=== PATIENT | female | born 1960 | race Caucasian/White ===

== ENCOUNTER → 2016-11-01 | Outpatient (CLI) | payer BC, MEDICARE ==
--- NOTE | 2016-11-01 14:20 | MR ---
EXAMINATION TYPE: MR lumbar spine wo con DATE OF EXAM: 11/01/2016 COMPARISON: NONE HISTORY: lumbago per order. Pain and numbness and tingling in back extending into left thigh and calf per patient for years. TECHNIQUE: Multiplanar, multisequence imaging of the lumbar spine is performed without IV contrast. FINDINGS: Sagittal images of the lumbar spine show vertebral body heights and alignment to appear sat isfactory. Multilevel disc desiccation is seen but disc space heights are fairly well-maintained. No large posterior disc herniations are seen on sagittal images The conus medullaris is normal in posit ion and signal ending at T12-L1 disc space level. The bone marrow signal intensity is within normal limits. No significant spurring is seen. Axial images beginning at labeled T12-L1 level which appears within normal limits. Axial images at L1 -L2 and L2-L3 levels are felt within normal limits. Axial images at L3-L4 level show mild broad disc bulge minimally effacing anterior thecal sac and axi al image 13. Bilateral neural foramina are patent. Axial images at L4-L5 level show mild/moderate facet degenerative changes limits point hypertrophy ef facing posterior lateral thecal sac and axial image 7. There is broad-based posterior disc protrusion mildly effacing anterior thecal sac. Bilateral neural foramina are patent. Axial images at L5-S1 level show mild facet degenerative changes bilaterally. Spinal canal is preserv ed and bilateral neural foramina are patent. Paraspinal muscle bulk is preserved. IMPRESSION: Degenerative changes in the mid to lower lumbar spine as detailed above, no significant f inding is seen to account for patient's radiculopathy type symptoms however.
== END | disposition home or self-care (01) ==
LOC: RADMRIMAIN 10:39
PROVIDERS: ATTEND Nurse Practitioner Acute Care
DX: M47.816 Spondylosis without myelopathy or radiculopathy, lumbar region (principal)
CPT/HCPCS: 72148

== ENCOUNTER → 2020-03-24 | Outpatient (CLI) | payer MEDICARE ==
--- NOTE | 2020-03-24 16:16 | CT ---
EXAMINATION TYPE: CT brain wo con DATE OF EXAM: 03/24/2020 COMPARISON: MRI brain 12/06/2010 INDICATION: Headache and altered mental status, hx of aneurysm clips. DLP: 943.8 mGycm, Automated exposure control for dose reduction was used. CONTRAST: None CT of the brain is performed utilizing 3 mm thick sections through the posterior fossa and 3 mm thick sections through the remaining calvarium. Study is performed within 24 hours of arrival to the hosp ital. There is metallic coils are low at the left posterior inferior cerebellar artery level compatible wit h an aneurysm coiling. Metallic clip is also within the right MCA bifurcation region. Craniotomy defe ct is in the right temporal parietal region. No abnormal hyperdensity is present to suggest an acute intracranial hemorrhage. No mass lesion is evident. No acute infarcts are evident. Ventricles and sulci are appropriate for the patient age. Paranasal sinuses and mastoid air cells within the [id number]-teyt are clear. IMPRESSIONS: 1. No acute intracranial process. 2. Postsurgical changes
--- NOTE | 2020-03-24 16:51 | CT ---
EXAMINATION TYPE: CT angio head DATE OF EXAM: 03/24/2020 HISTORY: Headache and altered mental status, hx of aneurysm clips. COMPARISON: None CT DLP: 849.2 mGycm. Automated Exposure Control for Dose Reduction was Utilized. TECHNIQUE: CTA scan of the neck is performed with IV Contrast, patient injected with 100ml mL of Iso tirso 370, axial images are obtained, coronal and sagittal reformatted images are reviewed. Three-D rec onstructed images are created on an independent workstation and reviewed. Source images are reviewed . FINDINGS: Patient's coiling at the inferior left PICA and the aneurysm clip at the right middle cerebral artery bifurcation region are evident. No suspicious changes to suggest aneurysm is identified. Cervical of [place]erv[place]: Vertebral basilar system appears normal. Posterior cerebral vasculature is unrema rkable. Internal carotid arteries bifurcate normally into A1 and M1 segments. A2 segments are normal. The anterior communicating artery is patent. Left Posterior communicating artery is patent. Right po sterior communicating artery is patent. IMPRESSION: 1. No interval development aneurysm identified. 2. Normal [place] of [place]. 3. 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
== END | disposition home or self-care (01) ==
LOC: RADCTMAIN 15:31
PROVIDERS: ATTEND Psychiatry & Neurology Neurology
DX: R41.82 Altered mental status, unspecified (principal); Z98.890 Other specified postprocedural states; Z86.79 Personal history of other diseases of the circulatory system
CPT/HCPCS: 70496; 70450; Q9967

== ENCOUNTER 2020-09-19 20:46 | Emergency (ER) | payer MEDICARE, OTHER ==
[2020-09-19 20:51] VITALS: BP 141/86; PULSE 96; RESP 18; TEMP 98.2
[2020-09-19] MEDS ORDERED: ONDANSETRON 4 MG/2 ML VIAL IVP STA (21:27)
[2020-09-19] MEDS ORDERED: SODIUM CHLORIDE 0.9% 2,000 ML IV STA (21:27)
[2020-09-19 21:44] LABS: Basophils # (A) 0.1 k/uL (0-0.2); Basophils % (A) 1 %; Eosinophils # (A) 0.2 k/uL (0-0.7); Eosinophils % (A) 2 %; HCT 45.7 % (34.0-46.0); HGB 13.9 gm/dL (11.4-16.0); Hypochromasia Marked; Lymphocytes # (A) 3.4 k/uL (1.0-4.8); Lymphocytes % (A) 31 %; MCH 23.9 pg (25.0-35.0); MCHC 30.3 g/dL (31.0-37.0); MCV 78.9 fL (80.0-100.0); Mean Platelet Volume 7.8; Monocytes # (A) 0.7 k/uL (0-1.0); Monocytes % (A) 6 %; Neutrophils # (A) 6.3 k/uL (1.3-7.7); Neutrophils % (A) 58 %; Platelet Count 331 k/uL (150-450); RBC 5.79 m/uL (3.80-5.40); RDW 15.6 % (11.5-15.5); WBC 10.9 k/uL (3.8-10.6)
[2020-09-19 21:51] LABS: Appearance,Urine Clear (Clear); Bilirubin,Urine Negative (Negative); Blood,Urine Negative (Negative); Color,Urine Colorless; Glucose,Urine (UA) Negative (Negative); Ketones,Urine Negative (Negative); Leukocyte Esterase,Urine Negative (Negative); Nitrite,Urine Negative (Negative); Protein,Urine Negative (Negative); Specific Gravity,Urine 1.003 (1.001-1.035); Urobilinogen,Urine <2.0 mg/dL (<2.0)
[2020-09-19 22:09] LABS: ALT 15 U/L (4-34); AST 23 U/L (14-36); African American GFR (CKD) >90 (>60 ml/min/1.73 sqM); Albumin 4.2 g/dL (3.5-5.0); Alkaline Phosphatase 118 U/L (38-126); Anion Gap 10 mmol/L; Blood Urea Nitrogen 17 mg/dL (7-17); Calcium 9.8 mg/dL (8.4-10.2); Carbon Dioxide 30 mmol/L (22-30); Chloride 97 mmol/L (98-107); Glucose 98 mg/dL (74-99); Lipase 50 U/L (23-300); Magnesium 1.9 mg/dL (1.6-2.3); Non-African American GFR(CKD) >90 (>60 ml/min/1.73 sqM); Sodium 137 mmol/L (137-145); Total Bilirubin 0.3 mg/dL (0.2-1.3); Total Protein 6.9 g/dL (6.3-8.2)
[2020-09-19] MEDS ORDERED: ONDANSETRON 4 MG ODT STARTER PACK 2 TAB BTL PO STA (22:28)
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
== END 2020-09-19 22:48 | disposition home or self-care (01) ==
LOC: EC 20:46
DX: R11.2 Nausea with vomiting, unspecified (principal); T36.8X5A Adverse effect of other systemic antibiotics, initial encounter; I10 Essential (primary) hypertension; E78.5 Hyperlipidemia, unspecified; J44.9 Chronic obstructive pulmonary disease, unspecified; Z87.891 Personal history of nicotine dependence
CPT/HCPCS: 36415; 93005; 80053; 83690; 83735; 85025; 81003; 96374; 96361; 99284; J2405; S0119

== ENCOUNTER → 2021-02-17 | Outpatient (CLI) | payer OTHER, MEDICARE ==
--- NOTE | 2021-02-17 13:04 | CT ---
EXAMINATION TYPE: CT ankle RT wo con DATE OF EXAM: 02/17/2021 COMPARISON: None HISTORY: Closed trimalleolar fracture of right ankle. CT DLP: 401.[address] of the right ankle with reconstruction imaging. TECHNIQUE: Unenhanced CT of the right anklewas performed with bone and soft tissue window settings munguia bmitted in the axial coronal and sagittal planes. At a separate workstation [id number] TR imaging was obtai janet. FINDINGS: There is a plate and screw fixation involving the lateral malleolus with healed fracture no afsaneh. There is additional plate fixation with screws involving the posterior malleolus. There is interval h ealing noted. I do not see evidence for an acute fracture at this time. There is also plate and screw fixation involving the medial malleolus. Ankle mortise is intact. Degenerative narrowing noted. Ther e is disuse osteopenia noted throughout the visualized ankle. Mild soft tissue swelling is identified . IMPRESSION: 1. Plate and screw fixation of trimalleolar fractures noted above which demonstrate appropriate heali ng. No acute fractures seen. Disuse osteopenia.
== END | disposition home or self-care (01) ==
LOC: RADCTMAIN 12:09
PROVIDERS: ATTEND Orthopaedic Surgery Orthopaedic Trauma
DX: S82.851D Displaced trimalleolar fracture of right lower leg, subsequent encounter for closed fracture with routine healing (principal)

== ENCOUNTER → 2021-12-31 | Outpatient (CLI) | payer MEDICARE, OTHER ==
--- NOTE | 2021-12-31 13:07 | XR ---
EXAMINATION TYPE: XR chest 2V DATE OF EXAM: 12/31/2021 COMPARISON: None INDICATION: Emphysema, medical clearance TECHNIQUE: Frontal and lateral views of the chest are obtained. FINDINGS: The heart size is normal. The pulmonary vasculature is normal. The lungs are clear. Postsurgical changes within the lower thoracic spine are evident IMPRESSION: 1. No acute pulmonary process.
== END | disposition home or self-care (01) ==
LOC: RADXRMAIN 10:32
PROVIDERS: ATTEND Internal Medicine Pulmonary Disease
DX: J43.2 Centrilobular emphysema (principal)
CPT/HCPCS: 71046

== ENCOUNTER → 2022-01-25 | Outpatient (CLI) | payer OTHER ==
--- NOTE | 2022-01-25 16:10 | CT ---
EXAMINATION TYPE: CT thoracic spine wo con DATE OF EXAM: 01/25/2022 COMPARISON: None HISTORY: 61-year-old female M48.30, mid back pain around area of surgical site. Spinal surgery 10 mon ths ago. TECHNIQUE: Contiguous axial scanning of the thoracic spine without IV contrast. Coronal and sagittal reconstructions performed. CT DLP: 1061.5 mGycm Automated exposure control for dose reduction was used. FINDINGS: There is an intrathecal lead with tip at the T8-T9 level within the ventral thecal sac. The lead ente rs the left L3/L4 interlaminar space. There are postsurgical changes of T11-L1 posterior lumbar fusion with vertebral plasty at the T12 lev el. There is mild retropulsion into the ventral spinal canal and focal kyphotic deformity here but no evident canal compromise. Remaining vertebral body heights are preserved. Hypertrophic facet arthropathy lower lumbar spine with grade 1 anterolisthesis L5-S1. No significant paraspinal soft tissue abnormality identified especially at the surgical level. Moderate to advanced underlying emphysema. Moderate metastatic calcifications infrarenal abdominal ao rta. IMPRESSION: 1. STATUS POST T11-L1 POSTERIOR LUMBAR FUSION BRIDGING A T12 COMPRESSION FRACTURE STATUS POST VERTEBR OPLASTY CHANGE. MILD BONY RETROPULSION INTO THE VENTRAL SPINAL CANAL WITH FOCAL KYPHOSIS HERE BUT NO SOFYA CANAL COMPROMISE. THE ORTHOPEDIC HARDWARE APPEARS UNCOMPLICATED. NO PARASPINAL ABNORMALITY IDEN TIFIED ALLOWING FOR LIMITATIONS DUE TO METAL ARTIFACT. 2. HYPERTROPHIC FACET ARTHROPATHY LOWER LUMBAR SPINE WITH DEGENERATIVE GRADE 1 ANTEROLISTHESIS AT L5- S1.
== END | disposition home or self-care (01) ==
LOC: RADCTMAIN 12:56
PROVIDERS: ATTEND Neurological Surgery
DX: S22.081A Stable burst fracture of T11-T12 vertebra, initial encounter for closed fracture (principal); M47.816 Spondylosis without myelopathy or radiculopathy, lumbar region; M43.17 Spondylolisthesis, lumbosacral region; M40.204 Unspecified kyphosis, thoracic region; M48.30 Traumatic spondylopathy, site unspecified; Z98.1 Arthrodesis status
CPT/HCPCS: 72128

== ENCOUNTER 2022-10-08 12:03 | Inpatient (IN) | payer MEDICARE, OTHER ==
[2022-10-08] MEDS ORDERED: ACETAMINOPHEN IV (For NPO) 1,000 MG in EMPTY BAG 1 BAG IVPB STA (12:49)
--- NOTE | 2022-10-08 12:55 | ED ---
General Adult HPI - General Chief complaint: Chest Pain Stated complaint: Rt lung pain Time Seen by Provider: 10/08/22 12:16 Source: patient, family, RN notes reviewed Mode of arrival: wheelchair Limitations: no limitations - History of Present Illness Initial comments: Patient is a pleasant [age]-year-old female presenting to the emergency department with concerns of right sided posterior chest discomfort. Onset of symptoms was around 3 days ago. Patient has had limited activity since that time because it hurts to move. Patient does have mild cough and does have some mild sputum however has not looked at the color. No fevers. Patient does have history of similar symptoms twice previously associated with pneumonia. Patient states she does have a history of high heart rate and did not take her beta beth today. Patient does have history of COPD and is a former smoker. - Related Data Previous Rx's Medication Instructions Recorded Ondansetron Odt [Zofran Odt] 4 mg PO Q8HR PRN #15 tab 09/19/20 Allergies Allergy/AdvReac Type Severity Reaction Status Date / Time No Known Allergies Allergy Verified 09/19/20 20:51 Review of Systems ROS Statement: Those systems with pertinent positive or pertinent negative responses have been documented in the HPI. ROS Other: All systems not noted in ROS Statement are negative. Constitutional: Denies: fever Eyes: Denies: eye pain ENT: Denies: ear pain Respiratory: Reports: as per HPI, cough. Denies: dyspnea Cardiovascular: Reports: as per HPI Endocrine: Denies: fatigue Gastrointestinal: Denies: abdominal pain Genitourinary: Denies: dysuria Musculoskeletal: Reports: as per HPI Past Medical History Past Medical History: Asthma, COPD, Hyperlipidemia, Hypertension History of Any Multi-Drug Resistant Organisms: None Reported Additional Past Surgical History / Comment(s): Surgey on right foot 2020 Past Psychological History: No Psychological Hx Reported Smoking Status: Former smoker Past Alcohol Use History: None Reported Past Drug Use History: None Reported General Exam Limitations: no limitations General appearance: alert, in no apparent distress Head exam: Present: normocephalic Eye exam: Present: normal appearance Neck exam: Present: normal inspection Respiratory exam: Present: normal lung sounds bilaterally. Absent: respiratory distress, wheezes Cardiovascular Exam: Present: tachycardia GI/Abdominal exam: Present: soft. Absent: tenderness Extremities exam: Present: normal inspection. Absent: pedal edema, calf tenderness Back exam: Present: other (Mild tenderness right posterior lateral mid lung above the CVA). Absent: vertebral tenderness Neurological exam: Present: alert Psychiatric exam: Present: normal affect, normal mood Skin exam: Present: normal color Course Vital Signs 10/08/22 10/08/22 10/08/22 12:09 13:12 14:00 Temperature 99.3 F Pulse Rate 128 H 112 H 107 H Respiratory 18 20 20 Rate Blood Pressure 95/60 105/71 104/71 O2 Sat by Pulse 89 L 94 L 94 L Oximetry EKG Findings - EKG Results: EKG: interpreted by ERMD, sinus rhythm, normal axis, normal QRS, normal ST/T EKG shows: tachycardia Medical Decision Making - Medical Decision Making Was pt. sent in by a medical professional or institution (, PA, SHREDDER OPERATOR, urgent care, hospital, or fpc...) When possible be specific @ -[No] Did you speak to anyone other than the patient for history (EMS, parent, family, police, friend...)? What history was obtained from this source @ -Family is present and helps right history including onset Did you review nursing and triage notes (agree or disagree)? Why? @ -[I reviewed and agree with nursing and triage notes] Were old charts reviewed (outside hosp., previous admission, EMS record, old EKG, old radiological studies, urgent care reports/EKG's, fpc records)? Report findings @ -[No old charts were reviewed] Differential Diagnosis (chest pain, altered mental status, abdominal pain women, abdominal pain men, vaginal bleeding, weakness, fever, dyspnea, syncope, headache, dizziness, GI bleed, back pain, seizure, CVA, palpatations, mental health, musculoskeletal)? @ -Differential Dyspnea: Coronary syndrome, arrhythmia, tamponade, asthma, COPD, pulmonary embolism, pneumonia, pneumothorax, pulmonary effusion, anaphylaxis, diabetic ketoacidosis, flailed chest, pulmonary contusion, diaphragmatic rupture, anemia, neuromuscu lar, this is not meant to be an all-inclusive list. EKG interpreted by me (3pts min.). @ -[As above] X-rays interpreted by me (1pt min.). @ -Chest x-ray shows multifocal pneumonia, mostly right lower CT interpreted by me (1pt min.). @ -[None done] U/S interpreted by me (1pt. min.). @ -[None done] What testing was considered but not performed or refused? (CT, X-rays, U/S, labs)? Why? @ -[None] What meds were considered but not given or refused? Why? @ -[None] Did you discuss the management of the patient with other professionals (professionals i.e. Dr., PA, SHREDDER OPERATOR, lab, RT, psych nurse, social services specialist, manufacturing plant manager, teacher, geological technical officer, telephonic nurse case manager)? Give summary @ -Case was discussed with Dr. Garcia with [facility] who will admit covering Dr. Larios Was smoking cessation discussed for >3mins.? @ -[No] Was critical care preformed (if so, how long)? @ -32 minutes. Were there social determinants of health that impacted care today? How? (Homelessness, low income, unemployed, alcoholism, drug addiction, transportation, low edu. Level, literacy, decrease access to med. care, care home, rehab)? @ -[No] Was there de-escalation of care discussed even if they declined (Discuss DNR or withdrawal of care, Hospice)? DNR status @ -[No] What co-morbidities impacted this encounter? (DM, HTN, Smoking, COPD, CAD, Cancer, CVA, ARF, Chemo, Hep., AIDS, mental health diagnosis, sleep apnea, morbid obesity)? @ -[None] Was patient admitted / discharged? Hospital course, mention meds given and route, prescriptions, significant lab abnormalities, going to OR and other pertinent info. @ -Patient reevaluated. Patient updated on results and plan. Patient be admitted with pulmonary consult. Orders written. There is concern for sepsis diagnosed at 1440. Blood culture and lactic acid and IV antibiotics will be ordered. Patient also has elevated d-dimer and computed tomography scan the chest will be ordered. Undiagnosed new problem with uncertain prognosis? @ -[No] Drug Therapy requiring intensive monitoring for toxicity (Heparin, Nitro, Insulin, Cardizem)? @ -[No] Were any procedures done? @ -[No] Diagnosis/symptom? @ -Pneumonia, sepsis Acute, or Chronic, or Acute on Chronic? @ -Acute, acute Uncomplicated (without systemic symptoms) or Complicated (systemic symptoms)? @ -Pneumonias, Yasmeen with sepsis Side effects of treatment? @ -[No] Exacerbation, Progression, or Severe Exacerbation? @ -[No] Poses a threat to life or bodily function? How? (Chest pain, USA, NM, pneumonia, PE, COPD, DKA, ARF, appy, cholecystitis, CVA, Diverticulitis, Homicidal, Suicidal, threat to staff... and all critical care pts) @ -And sepsis does pose a threat to life with multiorgan dysfunction potential - Lab Data Result diagrams: 10/08/22 12:55 10/08/22 12:55 Lab Results 10/08/22 10/08/22 10/08/22 Range/Units 12:55 12:55 12:55 WBC 15.2 H (3.8-10.6) k/uL RBC 4.64 (3.80-5.40) m/uL Hgb 13.2 (11.4-16.0) gm/dL Hct 41.6 (34.0-46.0) % MCV 89.6 (80.0-100.0) fL MCH 28.4 (25.0-35.0) pg MCHC 31.7 (31.0-37.0) g/dL RDW 14.3 (11.5-15.5) % Plt Count 164 (150-450) k/uL MPV 8.5 Neutrophils % 89 % Lymphocytes % 7 % Monocytes % 2 % Eosinophils % 1 % Basophils % 0 % Neutrophils # 13.6 H (1.3-7.7) k/uL Lymphocytes # 1.0 (1.0-4.8) k/uL Monocytes # 0.3 (0-1.0) k/uL Eosinophils # 0.2 (0-0.7) k/uL Basophils # 0.0 (0-0.2) k/uL Hypochromasia Slight PT 11.0 (9.0-12.0) sec INR 1.1 (<1.2) APTT 31.1 H (22.0-30.0) sec D-Dimer 5.24 H (<0.60) mg/L FEU Sodium 133 L (137-145) mmol/L Potassium 3.4 L (3.5-5.1) mmol/L Chloride 98 (98-107) mmol/L Carbon Dioxide 27 (22-30) mmol/L Anion Gap 8 mmol/L BUN 17 (7-17) mg/dL Creatinine 0.68 (0.52-1.04) mg/dL Est GFR (CKD-EPI)AfAm >90 (>60 ml/min/1.73 sqM) Est GFR (CKD-EPI)NonAf >90 (>60 ml/min/1.73 sqM) Glucose 102 H (74-99) mg/dL Plasma Lactic Acid Johnie (0.7-2.0) mmol/L Calcium 8.4 (8.4-10.2) mg/dL Magnesium 1.9 (1.6-2.3) mg/dL Total Bilirubin 1.8 H (0.2-1.3) mg/dL AST 17 (14-36) U/L ALT 17 (4-34) U/L Alkaline Phosphatase 165 H (38-126) U/L Total Protein 5.7 L (6.3-8.2) g/dL Albumin 2.9 L (3.5-5.0) g/dL TSH 1.230 (0.465-4.680) mIU/L Free T4 1.29 (0.78-2.19) ng/dL Free T3 pg/mL 2.8 (2.8-5.3) pg/ml Coronavirus (PCR) (Not Detectd) 10/08/22 10/08/22 Range/Units 12:55 12:55 WBC (3.8-10.6) k/uL RBC (3.80-5.40) m/uL Hgb (11.4-16.0) gm/dL Hct (34.0-46.0) % MCV (80.0-100.0) fL MCH (25.0-35.0) pg MCHC (31.0-37.0) g/dL RDW (11.5-15.5) % Plt Count (150-450) k/uL MPV Neutrophils % % Lymphocytes % % Monocytes % % Eosinophils % % Basophils % % Neutrophils # (1.3-7.7) k/uL Lymphocytes # (1.0-4.8) k/uL Monocytes # (0-1.0) k/uL Eosinophils # (0-0.7) k/uL Basophils # (0-0.2) k/uL Hypochromasia PT (9.0-12.0) sec INR (<1.2) APTT (22.0-30.0) sec D-Dimer (<0.60) mg/L FEU Sodium (137-145) mmol/L Potassium (3.5-5.1) mmol/L Chloride (98-107) mmol/L Carbon Dioxide (22-30) mmol/L Anion Gap mmol/L BUN (7-17) mg/dL Creatinine (0.52-1.04) mg/dL Est GFR (CKD-EPI)AfAm (>60 ml/min/1.73 sqM) Est GFR (CKD-EPI)NonAf (>60 ml/min/1.73 sqM) Glucose (74-99) mg/dL Plasma Lactic Acid Johnie 1.0 (0.7-2.0) mmol/L Calcium (8.4-10.2) mg/dL Magnesium (1.6-2.3) mg/dL Total Bilirubin (0.2-1.3) mg/dL AST (14-36) U/L ALT (4-34) U/L Alkaline Phosphatase (38-126) U/L Total Protein (6.3-8.2) g/dL Albumin (3.5-5.0) g/dL TSH (0.465-4.680) mIU/L Free T4 (0.78-2.19) ng/dL Free T3 pg/mL (2.8-5.3) pg/ml Coronavirus (PCR) Not Detected (Not Detectd) Critical Care Time Critical Care Time: Yes Total Critical Care Time: 31 Disposition Clinical Impression: Pneumonia, Sepsis Disposition: ADMITTED IP TO THIS HOSP Condition: Serious Is patient prescribed a controlled substance at d/c from ED?: No Referrals: Kevin Marie MD [Primary Care Provider] - 1-2 days Time of Disposition: 14:41
[2022-10-08] MEDS: SODIUM CHLORIDE 0.9% 1,000 ML IV SCH ×3 (13:03→22:32)
[2022-10-08 13:29] LABS: Basophils % (A) 0 %; Eosinophils # (A) 0.2 k/uL (0-0.7); Eosinophils % (A) 1 %; HCT 41.6 % (34.0-46.0); HGB 13.2 gm/dL (11.4-16.0); Hypochromasia Slight; Lymphocytes % (A) 7 %; MCH 28.4 pg (25.0-35.0); MCHC 31.7 g/dL (31.0-37.0); MCV 89.6 fL (80.0-100.0); Mean Platelet Volume 8.5; Monocytes # (A) 0.3 k/uL (0-1.0); Monocytes % (A) 2 %; Neutrophils # (A) 13.6 k/uL (1.3-7.7); Neutrophils % (A) 89 %; Platelet Count 164 k/uL (150-450); RBC 4.64 m/uL (3.80-5.40); RDW 14.3 % (11.5-15.5); WBC 15.2 k/uL (3.8-10.6)
--- NOTE | 2022-10-08 13:51 | XR ---
EXAMINATION TYPE: XR chest 2V DATE OF EXAM: 10/08/2022 1:29 PM COMPARISON: Chest radiographs from 12/31/2021 TECHNIQUE: XR chest 2V Frontal and lateral views of the chest. CLINICAL INDICATION:Female, 62 years old with history of Fever; FINDINGS: Lungs/Pleura: No pleural effusion or pneumothorax. Multifocal patchy airspace opacities within the ri ght mid and lower lung. Pulmonary vascularity: Unremarkable. Heart/mediastinum: Cardiomediastinal silhouette is unremarkable. Musculoskeletal: No acute osseous pathology. Status post T11 L1 posterior lumbar fusion bridging T12 compression fracture status post vertebroplasty changes. IMPRESSION: Multifocal patchy airspace opacity within the right mid and lower lung concerning for pneumonia.
[2022-10-08 13:53] LABS: ALT 17 U/L (4-34); AST 17 U/L (14-36); African American GFR (CKD) >90 (>60 ml/min/1.73 sqM); Albumin 2.9 g/dL (3.5-5.0); Alkaline Phosphatase 165 U/L (38-126); Anion Gap 8 mmol/L; Blood Urea Nitrogen 17 mg/dL (7-17); Calcium 8.4 mg/dL (8.4-10.2); Carbon Dioxide 27 mmol/L (22-30); Chloride 98 mmol/L (98-107); Glucose 102 mg/dL (74-99); Magnesium 1.9 mg/dL (1.6-2.3); Non-African American GFR(CKD) >90 (>60 ml/min/1.73 sqM); Potassium 3.4 mmol/L (3.5-5.1); Sodium 133 mmol/L (137-145); Total Bilirubin 1.8 mg/dL (0.2-1.3); Total Protein 5.7 g/dL (6.3-8.2)
[2022-10-08 13:58] LABS: INR 1.1 (<1.2); Partial Thromboplastin Time 31.1 sec (22.0-30.0)
[2022-10-08 14:08] LABS: T4, Free (Free Thyroxine) 1.29 ng/dL (0.78-2.19)
[2022-10-08] MEDS ORDERED: AZITHROMYCIN 500 MG in SODIUM CHLORIDE 0.9% 250 ML IVPB STA (14:41)
[2022-10-08] MEDS ORDERED: PNEUMONIA PROTOCOL UTILIZED 1 EACH MISC PO PRN (14:41)
[2022-10-08] MEDS ORDERED: IPRATROPIUM-ALBUTEROL 3 ML NEB INHALATION PRN (15:07)
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
--- NOTE | 2022-10-08 15:46 | CT ---
EXAMINATION TYPE: CT angio chest CT DLP: 343.8 mGycm, Automated exposure control for dose reduction was used. DATE OF EXAM: 10/08/2022 3:28 PM COMPARISON: None CLINICAL INDICATION:Female, 62 years old with history of Dyspnea; SOB. R/O PE. TECHNIQUE/CONTRAST: CTA scan of the thorax is performed with IV Contrast, patient injected with 100 ml mL of Isovue 370, MIP images are created and reviewed these are created on a separate workstation.. FINDINGS: Pulmonary Artery: There is no evidence for a filling defect within the pulmonary vasculature to sugge st acute pulmonary embolism. The pulmonary artery is of normal size. Lungs/Pleura: Right lower lobe consolidation changes. Moderate emphysema changes are seen throughout the lungs including paraseptal and centrilobular emphysema. No evidence of focal consolidation, pleur al effusion or pneumothorax. Airway: Large airways are patent. Heart: Heart is within normal limits for size. Vasculature: No evidence of aortic aneurysm. Mediastinum: Multiple right pulmonary hilum lymph nodes measuring up to 3.7 x 2.3 cm. Musculoskeletal: No acute osseous abnormalities, postsurgical changes to the spine with hardware visu alized and intact. Vertebral plasty changes are also present. Soft Tissues: Unremarkable. Lower neck: No significant findings. Upper Abdomen: Gallbladder surgically absent. IMPRESSION: 1. No evidence of pulmonary embolism. 2. Right lower lobe pneumonia. Short-term follow-up CT is recommended to ensure resolution of right pulmonary hilum lymph nodes. 3. Hepatic steatosis. 4. [id number] emphysema changes.
--- NOTE | 2022-10-08 17:19 | US ---
EXAMINATION TYPE: US venous doppler duplex LE LT DATE OF EXAM: 10/08/2022 5:12 PM COMPARISON: NONE CLINICAL INDICATION: Female, 62 years old with history of swelling of legs; left leg pain and edema SIDE PERFORMED: left TECHNIQUE: The lower extremity deep venous system is examined utilizing real time linear array sonog tosha with graded compression, doppler sonography and color-flow sonography. VESSELS IMAGED: Common Femoral Vein Deep Femoral Vein Greater Saphenous Vein * Femoral Vein Popliteal Vein Small Saphenous Vein * Proximal Calf Veins (* superficial vessels) Grayscale, color doppler, spectral doppler imaging performed of the deep veins of the left lower extr emity. There is normal flow, compressibility, vascular waveforms. Left Leg: no evidence of DVT IMPRESSION: No deep venous thrombosis of the left lower extremity.
[2022-10-08] MEDS ORDERED: ALBUTEROL HFA INHALER INHALATION PRN (18:19)
[2022-10-08] MEDS: METOPROLOL TARTRATE 25 MG TAB PO SCH ×2 (18:28→22:32)
[2022-10-08] MEDS: HYDROcodone/APAP 5-325MG 1 EACH TAB PO SCH (18:28)
[2022-10-08] MEDS ORDERED: NON FORMULARY DRUG (Fluticasone/Umeclidin/Vilanter [Trelegy Ellipta 200-62.5-25] 1 EACH Bl INHALATION SCH (20:00)
[2022-10-08] MEDS: ATORVASTATIN 20 MG TAB PO SCH (20:07)
[2022-10-08] MEDS: DULoxetine HCL 60 MG CAPSULE.DR PO SCH (20:07)
[2022-10-08] MEDS: PANTOPRAZOLE 40 MG TABLET PO SCH (20:07)
[2022-10-08] MEDS: SYMBICORT 80-4.5 MCG INHALER INHALATION SCH (20:29)
[2022-10-08] MEDS: IPRATROPIUM 0.5 MG/2.5 ML NEBU INHALATION SCH (20:38)
[2022-10-09] MEDS: SODIUM CHLORIDE 0.9% 1,000 ML IV SCH ×6 (00:55→22:04)
--- NOTE | 2022-10-09 06:49 | XR ---
EXAMINATION TYPE: XR chest 2V DATE OF EXAM: 10/09/2022 6:44 AM COMPARISON: Chest radiographs from 10/08/2022, CTA chest 10/08/2022 TECHNIQUE: XR chest 2V Frontal and lateral views of the chest. CLINICAL INDICATION:Female, 62 years old with history of pneumonia; FINDINGS: Lungs/Pleura: No pleural effusion or pneumothorax. Multifocal patchy airspace opacities within the ri ght mid and lower lung redemonstrated. Linear atelectasis within the right midlung. Pulmonary vascularity: Unremarkable. Heart/mediastinum: Cardiomediastinal silhouette is unremarkable. Musculoskeletal: No acute osseous pathology. Status post T11 L1 posterior lumbar fusion bridging T12 compression fracture status post vertebroplasty changes. IMPRESSION: Similar multifocal patchy airspace opacities within the right mid and lower lung consistent with pneu monia.
[2022-10-09] MEDS: IPRATROPIUM 0.5 MG/2.5 ML NEBU INHALATION SCH (07:27)
[2022-10-09] MEDS: SYMBICORT 80-4.5 MCG INHALER INHALATION SCH (07:27)
[2022-10-09] MEDS ORDERED: PANTOPRAZOLE 40 MG TABLET PO SCH (07:30)
[2022-10-09] MEDS: HYDROcodone/APAP 5-325MG 1 EACH TAB PO SCH ×2 (09:44→22:03)
[2022-10-09] MEDS: POTASSIUM CHLORIDE ER 10 MEQ TAB.ER.PRT PO SCH (09:44)
[2022-10-09] MEDS: ASPIRIN 81 MG PO SCH (09:44)
[2022-10-09] MEDS: METOPROLOL TARTRATE 25 MG TAB PO SCH ×2 (09:45→22:03)
[2022-10-09] MEDS: PANTOPRAZOLE 40 MG TABLET PO SCH ×2 (09:45→22:02)
--- NOTE | 2022-10-09 10:21 | P.CNPUL ---
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 She is on home oxygen at 1 L/m per nasal cannula mainly at night. She is on Trelegy and albuterol. She presented here to the emergency room yesterday with complaints of increasing shortness of breath, cough and congestion. Chest x-ray shows multifocal patchy airspace opacities within the right mid and lower lung consistent with pneumonia. CT angiogram ruled out pulmonary embolism. There is a right lower lobe pneumonia noted. Mild to moderate emphysematous changes. She is having complaints of left lower leg discomfort and DVT was ruled out. White count 15.2. Hemoglobin 13.2. Platelets 164. D-dimer 5.24. Sodium 133. Potassium 3.4. Bicarb 27. BUN 17. Creatinine 0.68. AST 17. ALT 17. Troponins negative 3. Huerta virus not detected. She's been initiated and DuoNeb inhalations, Pulmicort and Perforomist inhalations, Solu-Medrol. Antibiotics for ceftriaxone and azithromycin. Review of Systems REVIEW OF SYSTEMS: CONSTITUTIONAL: Denies any recent significant weight loss or weight gain. EYES: Denies change in vision. EARS, NOSE, MOUTH, THROAT: Denies headaches, denies sore throat. CARDIOVASCULAR: Denies chest pain, palpitations or syncopal episodes. RESPIRATORY: Positive for shortness of breath, cough, congestion no hemoptysis. GASTROINTESTINAL: Denies change in appetite, denies abdominal pain GENITOURINARY: Denies hematuria, denies infections. MUSKULOSKELETAL: Left lower extremity pain, denies swelling. INTEGUMENTARY: Denies rash, denies eczema. NEUROLOGICAL: Denies recent memory loss, no recent seizure activity. PSYCHIATRIC: Denies anxiety, denies depression. HEMATOLOGIC/LYMPHATIC: Denies anemia, denies enlarged lymph nodes. Past Medical History Past Medical History: Asthma, COPD, Hyperlipidemia, Hypertension History of Any Multi-Drug Resistant Organisms: None Reported Additional Past Surgical History / Comment(s): Surgey on right foot 2020 Past Psychological History: No Psychological Hx Reported Smoking Status: Former smoker Past Alcohol Use History: None Reported Past Drug Use History: None Reported Medications and Allergies Home Medications Medication Instructions Recorded Confirmed Type Albuterol Sulfate [Ventolin HFA] 2 puff INHALATION RT-QID PRN 10/08/22 10/08/22 History Aspirin EC [Ecotrin Low Dose] 81 mg PO DAILY 10/08/22 10/08/22 History DULoxetine HCL [Cymbalta] 60 mg PO HS 10/08/22 10/08/22 History Ergocalciferol [Vitamin D2 (1250 1,250 mcg PO DALE 10/08/22 10/08/22 History Mcg = 87284 Iu)] Fluticasone/Umeclidin/Vilanter 1 puff INHALATION RT-HS 10/08/22 10/08/22 History [Trelegy Ellipta 200-62.5-25] HYDROcodone/APAP 5-325MG [[place] 1 tab PO BID 10/08/22 10/08/22 History 5-325] Metoprolol Tartrate [Lopressor] 25 mg PO BID 10/08/22 10/08/22 History Omeprazole 20 mg PO BID 10/08/22 10/08/22 History Potassium Chloride ER [K-Dur 10] 10 meq PO DAILY 10/08/22 10/08/22 History Simvastatin [Zocor] 40 mg PO HS 10/08/22 10/08/22 History Allergies Allergy/AdvReac Type Severity Reaction Status Date / Time No Known Allergies Allergy Verified 10/08/22 15:45 Physical Exam Vitals: Vital Signs Temp Pulse Pulse Resp BP BP Pulse Ox 10/09/22 07:41 110 H 10/09/22 07:28 108 H 10/09/22 01:29 99.2 F 115 H 22 120/73 92 L 10/08/22 20:37 112 H 10/08/22 20:31 111 H 10/08/22 20:05 120 H 10/08/22 19:04 100.1 F H 110 H 22 118/72 92 L 10/08/22 15:43 97 10/08/22 15:37 98.6 F 106 H 22 108/70 97 10/08/22 14:00 107 H 20 104/71 94 L 10/08/22 13:12 112 H 20 105/71 94 L 10/08/22 12:09 99.3 F 128 H 18 95/60 89 L Intake and Output 10/08/22 10/09/22 10/09/22 22:59 06:59 14:59 Intake Total 240 Balance 240 Intake: Oral 240 Other: # Voids 1 1 Weight 72.575 kg GENERAL EXAM: Alert, pleasant 62-year-old female, on 3 L nasal cannula, fairly comfortable in no apparent distress. HEAD: Normocephalic. EYES: Normal reaction of pupils, equal size. NOSE: Clear with pink turbinates. THROAT: No erythema or exudates. NECK: No masses, no JVD. CHEST: No chest wall deformity. LUNGS: Equal air entry with bilateral scattered rhonchi right greater than left. CVS: S1 and S2 normal with no audible murmur, regular rhythm. ABDOMEN: No hepatosplenomegaly, normal bowel sounds, no guarding or rigidity. SPINE: No scoliosis or deformity SKIN: No rashes CENTRAL NERVOUS SYSTEM: No focal deficits, tone is normal in all 4 extremities. EXTREMITIES: There is no peripheral edema. No clubbing, no cyanosis. Peripheral pulses are intact. Results - Laboratory Findings CBC and BMP: 10/08/22 12:55 10/08/22 12:55 PT/INR, D-dimer PT 11.0 sec (9.0-12.0) 10/08/22 12:55 INR 1.1 (<1.2) 10/08/22 12:55 D-Dimer 5.24 mg/L FEU (<0.60) H 10/08/22 12:55 Abnormal lab findings: Abnormal Labs 10/08/22 10/08/22 10/08/22 12:55 12:55 12:55 WBC 15.2 H Neutrophils # 13.6 H APTT 31.1 H D-Dimer 5.24 H Sodium 133 L Potassium 3.4 L Glucose 102 H Total Bilirubin 1.8 H Alkaline Phosphatase 165 H Total Protein 5.7 L Albumin 2.9 L - Diagnostic Findings Chest x-ray: image reviewed CT scan - chest: image reviewed Assessment and Plan Assessment: Acute on chronic hypoxemic respiratory failure secondary to community-acquired pneumonia Acute exacerbation of chronic obstructive pulmonary disease secondary to above History of oxygen dependent chronic obstructive pulmonary disease Former smoker Hypertension Hyperlipidemia Gastroesophageal reflux disease History of depression Plan: The patient was seen and evaluated CAT scan, chest x-rays, labs and medications reviewed Continue DuoNeb inhalations, Pulmicort and Perforomist inhalations Continue Solu-Medrol Continue antibiotics Titrate the FiO2 as tolerated We will continue to follow and make further recommendations based on her clinical status I have personally seen and examined the patient, performed the documentation and the assessment and plan as written. Number of minutes spent on the visit: 20.
[2022-10-09] MEDS: AZITHROMYCIN 500 MG TAB PO SCH (11:16)
[2022-10-09] MEDS: IPRATROPIUM-ALBUTEROL 3 ML NEB INHALATION SCH ×3 (11:45→19:33)
[2022-10-09] MEDS: methylPREDNISolone SOD SUCCI 125 MG/2 ML VIAL IV SCH ×2 (12:42→17:58)
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
[2022-10-09] MEDS ORDERED: ERGOCALCIFEROL 1,250 MCG (50,000 IU) CAPSULE PO SCH (18:19)
[2022-10-09] MEDS: FORMOTEROL FUMARATE 20 MCG/2 ML NEBU INHALATION SCH (19:33)
[2022-10-09] MEDS: BUDESONIDE 1 MG/2 ML NEBU INHALATION SCH (19:33)
[2022-10-09] MEDS: DULoxetine HCL 60 MG CAPSULE.DR PO SCH (22:03)
[2022-10-09] MEDS: ATORVASTATIN 20 MG TAB PO SCH (22:03)
--- NOTE | 2022-10-09 23:11 | P.CONS ---
History of Present Illness - Reason for Consult Consult date: 10/09/22 - History of Present Illness Patient is a 62-year-old female with a past medical history significant for hypertension hyperlipidemia asthma/COPD presenting to the hospital yesterday afternoon for evaluation of right posterior chest discomfort patient's symptom has been going on for 3 days before presentation to the hospital he denies a history of any fall or trauma to the area patient complaining of sharp pain to the right lower chest intensity is almost 7-8 out of 10 no radiation patient also have a mild cough and is bringing up some sputum however denies high-grade fever, with the same the patient was evaluated on presentation to the hospital patient did have a low-grade fever of 99.3 subsequent spike a fever of 100.1 F patient was tachycardic did have elevated white count 15.2 with a left shift creatinine was normal liver enzymes are normal COVID testing was negative patient did have a chest x-ray multifocal patchy airspace opacity within the right mid and lower lung concerning for pneumonia patient also have a CT angiogram of the chest that was negative for PE however did shows evidence of right lower lobe pneumonia patient was started on Rocephin and Zithromax infectious disease was consulted for further management of antibiotic therapy Past Medical History Past Medical History: Asthma, COPD, Hyperlipidemia, Hypertension History of Any Multi-Drug Resistant Organisms: None Reported Additional Past Surgical History / Comment(s): Surgey on right foot 2020 Past Psychological History: No Psychological Hx Reported Smoking Status: Former smoker Past Alcohol Use History: None Reported Past Drug Use History: None Reported Medications and Allergies Home Medications Medication Instructions Recorded Confirmed Type Albuterol Sulfate [Ventolin HFA] 2 puff INHALATION RT-QID PRN 10/08/22 10/08/22 History Aspirin EC [Ecotrin Low Dose] 81 mg PO DAILY 10/08/22 10/08/22 History DULoxetine HCL [Cymbalta] 60 mg PO HS 10/08/22 10/08/22 History Ergocalciferol [Vitamin D2 (1250 1,250 mcg PO DALE 10/08/22 10/08/22 History Mcg = 04076 Iu)] Fluticasone/Umeclidin/[place]an[place] 1 puff INHALATION RT-HS 10/08/22 10/08/22 History [Trelegy Ellipta 200-62.5-25] HYDROcodone/APAP 5-325MG [[place] 1 tab PO BID 10/08/22 10/08/22 History 5-325] Metoprolol Tartrate [Lopressor] 25 mg PO BID 10/08/22 10/08/22 History Omeprazole 20 mg PO BID 10/08/22 10/08/22 History Potassium Chloride ER [K-Dur 10] 10 meq PO DAILY 10/08/22 10/08/22 History Simvastatin [Zocor] 40 mg PO HS 10/08/22 10/08/22 History Allergies Allergy/AdvReac Type Severity Reaction Status Date / Time No Known Allergies Allergy Verified 10/08/22 15:45 Physical Exam Vitals: Vital Signs Temp Pulse Pulse Resp BP Pulse Ox 10/09/22 11:55 96 10/09/22 11:47 94 10/09/22 07:41 110 H 10/09/22 07:28 108 H 10/09/22 01:29 99.2 F 115 H 22 120/73 92 L 10/08/22 20:37 112 H 10/08/22 20:31 111 H 10/08/22 20:05 120 H 10/08/22 19:04 100.1 F H 110 H 22 118/72 92 L 10/08/22 15:43 97 10/08/22 15:37 98.6 F 106 H 22 108/70 97 Intake and Output 10/08/22 10/09/22 10/09/22 22:59 06:59 14:59 Intake Total 240 Balance 240 Intake: Oral 240 Other: # Voids 1 1 Weight 72.575 kg Results CBC & Chem 7: 10/08/22 12:55 10/08/22 12:55 Labs: Abnormal Lab Results - Last 24 Hours (Table) 10/08/22 Range/Units 12:55 APTT 31.1 H (22.0-30.0) sec D-Dimer 5.24 H (<0.60) mg/L FEU Assessment and Plan Plan: 1patient was in the hospital with sepsis in this patient with fever tachycardia elevated white count source right lower lobe pneumonia likely community- acquired pathogen in this patient who do have underlying history of COPD and compromised lung. 2we will try to obtain a sputum for Gram stain and culture check a CRP and procalcitonin level. 3continue with Rocephin and Zithromax while waiting for the culture to finalize. We will follow on clinical condition and cultures to further adjust medication if needed Thank you for this consultation we will follow the patient along with you Dictation was produced using [employer] dictation software. please excuse any grammatical, word or spelling errors. Time with Patient: Greater than 30
[2022-10-10] MEDS: methylPREDNISolone SOD SUCCI 125 MG/2 ML VIAL IV SCH ×4 (00:14→17:45)
[2022-10-10] MEDS: SODIUM CHLORIDE 0.9% 1,000 ML IV SCH ×5 (03:10→17:46)
[2022-10-10] MEDS: IPRATROPIUM-ALBUTEROL 3 ML NEB INHALATION SCH ×4 (07:25→20:48)
[2022-10-10] MEDS: BUDESONIDE 1 MG/2 ML NEBU INHALATION SCH ×2 (07:26→20:49)
[2022-10-10] MEDS: FORMOTEROL FUMARATE 20 MCG/2 ML NEBU INHALATION SCH ×2 (07:26→20:48)
[2022-10-10 08:40] LABS: HCT 36.3 % (37.2-46.3); MCH 27.3 pg (27.0-32.0); MCHC 30.3 d/dL (32.0-37.0); MCV 90.1 FL (80.0-97.0); Mean Platelet Volume 10.9 FL (9.5-12.2); NRBC Per 100 WBC 0 X 10*3/uL (0.00-0.01); Platelet Count 194 X 10*3/uL (140-440); RBC 4.03 X 10*6/uL (4.10-5.20); WBC 9.14 X 10*3/uL (4.50-10.00)
[2022-10-10 08:51] LABS: ALT 12 U/L (8-44); AST 11 U/L (13-35); Albumin 2.8 d/dL (3.8-4.9); Albumin/Globulin Ratio 1.27 Ratio (1.60-3.17); Alkaline Phosphatase 122 U/L (41-126); Blood Urea Nitrogen 10.6 mg/dL (9.0-27.0); Calcium 8.8 mg/dL (8.7-10.3); Carbon Dioxide 23.7 mmol/L (21.6-31.8); Chloride 107 mmol/L (96-109); Globulin 2.2 d/dL (1.6-3.3); Glucose 224 mg/dL (70-110); Potassium 3.3 mmol/L (3.5-5.5); Sodium 141 mmol/L (135-145); Total Bilirubin 0.2 mg/dL (0.3-1.2)
[2022-10-10] MEDS: ASPIRIN 81 MG PO SCH (09:31)
[2022-10-10] MEDS: HYDROcodone/APAP 5-325MG 1 EACH TAB PO SCH ×2 (09:32→21:36)
[2022-10-10] MEDS: AZITHROMYCIN 500 MG TAB PO SCH (09:32)
[2022-10-10] MEDS: POTASSIUM CHLORIDE ER 10 MEQ TAB.ER.PRT PO SCH (09:33)
[2022-10-10] MEDS: METOPROLOL TARTRATE 25 MG TAB PO SCH ×2 (09:33→21:35)
[2022-10-10] MEDS: PANTOPRAZOLE 40 MG TABLET PO SCH ×2 (09:33→21:36)
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
--- NOTE | 2022-10-10 17:14 | P.PN ---
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 She is on home oxygen at 1 L/m per nasal cannula mainly at night. She is on Trelegy and albuterol. She presented here to the emergency room yesterday with complaints of increasing shortness of breath, cough and congestion. Chest x-ray shows multifocal patchy airspace opacities within the right mid and lower lung consistent with pneumonia. CT angiogram ruled out pulmonary embolism. There is a right lower lobe pneumonia noted. Mild to moderate emphysematous changes. She is having complaints of left lower leg discomfort and DVT was ruled out. White count 15.2. Hemoglobin 13.2. Platelets 164. D-dimer 5.24. Sodium 133. Potassium 3.4. Bicarb 27. BUN 17. Creatinine 0.68. AST 17. ALT 17. Troponins negative 3. Huerta virus not detected. She's been initiated and DuoNeb inhalations, Pulmicort and Perforomist inhalations, Solu-Medrol. Antibiotics for ceftriaxone and azithromycin. On today's evaluation of 10/10/2022, the patient is being seen for a follow-up. The patient has COPD and she is auction dependent and the patient has been maintained on Trelegy Ellipta on outpatient basis. She presented to us with worsening shortness of breath and patchy pulmonary infiltrates involving the lower lobes consistent with pneumonia and currently is on a combination of Rocephin and Zithromax and she is also on bronchodilators and steroids. The white cell count of 9.1 which is about compared to yesterday with a hemoglobin of 11.1 and a BUN is at 10 with a creatinine of 0.5 and a sodium level is at 141. The blood cultures are still negative for now. No other new complaints otherwise. The patient on oxygen at 3 L with a pulse ox of 94%, slightly improved compared to yesterday. Objective - Vital Signs Vital signs: Vital Signs Temp 96.1 F L 10/10/22 07:33 Pulse 89 10/10/22 11:33 Resp 18 10/10/22 08:00 BP 119/75 10/10/22 07:33 Pulse Ox 92 L 10/10/22 09:28 FiO2 21 10/10/22 07:26 Intake & Output 10/09/22 10/10/22 10/10/22 18:59 06:59 18:59 Intake Total 1080 Balance 1080 Intake: Oral 1080 Other: Voiding Method Toilet Bedside Commode # Voids 2 1 - Exam GENERAL EXAM: Alert, pleasant 62-year-old female, on 3 L nasal cannula, fairly comfortable in no apparent distress. HEAD: Normocephalic. EYES: Normal reaction of pupils, equal size. NOSE: Clear with pink turbinates. THROAT: No erythema or exudates. NECK: No masses, no JVD. CHEST: No chest wall deformity. LUNGS: Equal air entry with bilateral scattered rhonchi right greater than left. CVS: S1 and S2 normal with no audible murmur, regular rhythm. ABDOMEN: No hepatosplenomegaly, normal bowel sounds, no guarding or rigidity. SPINE: No scoliosis or deformity SKIN: No rashes CENTRAL NERVOUS SYSTEM: No focal deficits, tone is normal in all 4 extremities. EXTREMITIES: There is no peripheral edema. No clubbing, no cyanosis. Peripheral pulses are intact. - Labs CBC & Chem 7: 10/10/22 04:37 10/10/22 04:37 Labs: Abnormal Lab Results - Last 24 Hours (Table) 10/10/22 10/10/22 Range/Units 04:37 04:37 RBC 4.03 L (4.10-5.20) X 10*6/uL Hgb 11.0 L (12.0-15.0) d/dL Hct 36.3 L (37.2-46.3) % MCHC 30.3 L (32.0-37.0) d/dL Potassium 3.3 L (3.5-5.5) mmol/L Creatinine 0.5 L (0.6-1.5) mg/dL BUN/Creatinine Ratio 21.20 H (12.00-20.00) Ratio Glucose 224 H (70-110) mg/dL Total Bilirubin 0.2 L (0.3-1.2) mg/dL AST 11 L (13-35) U/L Total Protein 5.0 L (6.2-8.2) d/dL Albumin 2.8 L (3.8-4.9) d/dL Albumin/Globulin Ratio 1.27 L (1.60-3.17) Ratio Microbiology - Last 24 Hours (Table) 10/08/22 12:50 Blood Culture - Preliminary Blood 10/08/22 12:35 Blood Culture - Preliminary Blood Assessment and Plan Plan: Acute on chronic hypoxemic respiratory failure secondary to community-acquired pneumonia. The same time, the patient has a right hilar lymphadenopathy largest measuring 3.7 cm in size and she would benefit from a bronchoscopy and endobronchial ultrasound at the later stage and once her pneumonia has cleared. Right lower lobe pneumonia/consolidation Acute exacerbation of chronic obstructive pulmonary disease secondary to above History of oxygen dependent chronic obstructive pulmonary disease Former smoker Hypertension Hyperlipidemia Gastroesophageal reflux disease History of depression Plan: Continue same treatment CAT scan, chest x-rays, labs and medications reviewed, and the CAT scan of the chest with a right lower lobe pulmonary infiltrate/pneumonia and the patient has multiple right hilar lymph nodes largest measuring about 3.7 cm in size, and this is to be worked up on outpatient basis at the later stage. She may benefit from endobronchial ultrasound and transbronchial needle aspirate of the hilar lymph nodes. Continue DuoNeb inhalations, Pulmicort and Perforomist inhalations Continue Solu-Medrol Continue antibiotics Titrate the FiO2 as tolerated We will continue to follow and make further recommendations based on her clinical status
--- NOTE | 2022-10-10 19:18 | CA ---
Transthoracic Echo Report Name: Viridiana Marrero Age: 62 Gender: F : 1960 Exam Date: 10/10/2022 11:23 Exam Location: [facility] Ht (in): 62 Wt (lb): 160 Ordering Physician: Peter Garcia MD Attending/Referring Phys: Calcine Furnace Loader More Mustafa RDCS Procedure CPT: Indications: Slurred speech, CVA Cardiac Hx: Technical Quality: Fair Contrast 1: Total Dose (mL): Contrast 2: Total Dose (mL): MEASUREMENTS (Male / Female) Normal Values 2D ECHO LV Diastolic Diameter PLAX 4.7 cm 4.2 - 5.9 / 3.9 - 5.3 cm LV Systolic Diameter PLAX 3.2 cm IVS Diastolic Thickness 0.8 cm 0.6 - 1.0 / 0.6 - 0.9 cm LVPW Diastolic Thickness 0.9 cm 0.6 - 1.0 / 0.6 - 0.9 cm LV Relative Wall Thickness 0.4 RV Internal Dim ED PLAX 2.7 cm LA Systolic Diameter LX 3.4 cm 3.0 - 4.0 / 2.7 - 3.8 cm LV Diastolic Volume MOD 4C 77.4 cm??? LV Systolic Volume MOD 4C 41.0 cm??? LV Ejection Fraction MOD 4C 47.0 % LV Cardiac Index MOD 4C 1368.5 cm???/min???m??? LV Diastolic Length 4C 7.6 cm LV Systolic Length 4C 6.2 cm LV Diastolic Volume MOD 2C 85.1 cm??? LV Systolic Volume MOD 2C 49.9 cm??? LV Ejection Fraction MOD 2C 41.4 % LV Cardiac Index MOD 2C 1327.7 cm???/min???m??? LV Diastolic Length 2C 8.0 cm LV Systolic Length 2C 6.3 cm LA Volume 46.1 cm??? 18 - 58 / 22 - 52 cm??? M-MODE Aortic Root Diameter MM 3.2 cm MV E Point Septal Separation 1.5 cm AV Cusp Separation MM 2.0 cm DOPPLER AV Peak Velocity 149.1 cm/s AV Peak Gradient 8.9 mmHg MV Area PHT 3.3 cm??? Mitral E Point Velocity 104.7 cm/s Mitral A Point Velocity 110.6 cm/s Mitral E to A Ratio 0.9 MV Deceleration Time 232.9 ms MV E' Velocity 9.3 cm/s Mitral E to MV E' Ratio 11.3 TR Peak Velocity 225.7 cm/s TR Peak Gradient 20.4 mmHg Right Ventricular Systolic Press 24.9 mmHg FINDINGS Left Ventricle Left ventricular ejection fraction is estimated at 45-50 %. Left ventricular cavity size normal. Left ventricular wall thickness normal. Right Ventricle Normal right ventricular size. Right ventricular systolic pressure within normal limits. Right Atrium Normal right atrial size. Left Atrium Normal left atrial size. Mitral Valve Structurally normal mitral valve. No mitral stenosis, regurgitation or prolapse. Aortic Valve Trileaflet aortic valve. No aortic valve stenosis or regurgitation. Tricuspid Valve Structurally normal tricuspid valve. Trace to mild tricuspid regurgitation. Pulmonic Valve Pulmonic valve not well visualized. Pericardium No pericardial effusion. Aorta Normal size aortic root and proximal ascending aorta. CONCLUSIONS Normal LV size and systolic function Previewed by: Dr. Dylon De Leon MD (Electronically Signed) Final Date: 10 October 2022 19:17
[2022-10-10] MEDS: DULoxetine HCL 60 MG CAPSULE.DR PO SCH (21:36)
[2022-10-10] MEDS: ATORVASTATIN 20 MG TAB PO SCH (21:36)
[2022-10-11] MEDS: methylPREDNISolone SOD SUCCI 125 MG/2 ML VIAL IV SCH ×4 (00:30→18:20)
[2022-10-11] MEDS: SODIUM CHLORIDE 0.9% 1,000 ML IV SCH ×4 (02:33→23:58)
--- NOTE | 2022-10-11 08:00 | P.PN ---
Subjective Progress Note Date: 10/10/22 Principal diagnosis: Pneumonia Patient is a 62-year-old female with a past medical history significant for hypertension hyperlipidemia asthma/COPD presenting to the [facility] for evaluation of right posterior chest discomfort patient's symptom has been going on for 3 days before presentation to the hospital,chest x-ray multifocal patchy airspace opacity within the right mid and lower lung , CT angiogram of the chest that was negative for PE however did shows evidence of right lower lobe pneumonia On today's evaluation that is 10/10/2022 patient is afebrile this morning, patient is breathing slightly comfortably on 3 L nasal cannula oxygen patient chest pain has decreased in intensity patient denies any nausea no vomiting no abdominal pain no diarrhea. The patient white count normalized to 9.14, creatinine 0.5 blood culture currently pending sputum has not been collected Objective - Vital Signs Vital signs: Vital Signs Temp 97.9 F 10/10/22 20:51 Pulse 94 10/10/22 21:17 Resp 19 10/10/22 20:51 BP 111/69 10/10/22 20:51 Pulse Ox 95 10/10/22 20:51 FiO2 21 10/10/22 07:26 Intake & Output 10/10/22 10/10/22 10/11/22 06:59 18:59 06:59 Other: Voiding Method Toilet Bedside Commode # Voids 1 2 - Exam GENERAL DESCRIPTION: Middle-age female lying in bed in no distress RESPIRATORY SYSTEM: Unlabored breathing , coarse breath sounds at bases HEART: S1 S2 regular rate and rhythm ,no loud murmurs ABDOMEN: Soft , no tenderness EXTREMITIES: No edema feet - Labs CBC & Chem 7: 10/10/22 04:37 10/10/22 04:37 Labs: Abnormal Lab Results - Last 24 Hours (Table) 10/10/22 10/10/22 Range/Units 04:37 04:37 RBC 4.03 L (4.10-5.20) X 10*6/uL Hgb 11.0 L (12.0-15.0) d/dL Hct 36.3 L (37.2-46.3) % MCHC 30.3 L (32.0-37.0) d/dL Potassium 3.3 L (3.5-5.5) mmol/L Creatinine 0.5 L (0.6-1.5) mg/dL BUN/Creatinine Ratio 21.20 H (12.00-20.00) Ratio Glucose 224 H (70-110) mg/dL Total Bilirubin 0.2 L (0.3-1.2) mg/dL AST 11 L (13-35) U/L Total Protein 5.0 L (6.2-8.2) d/dL Albumin 2.8 L (3.8-4.9) d/dL Albumin/Globulin Ratio 1.27 L (1.60-3.17) Ratio Microbiology - Last 24 Hours (Table) 10/08/22 12:50 Blood Culture - Preliminary Blood 10/08/22 12:35 Blood Culture - Preliminary Blood Assessment and Plan (1) Pneumonia Current Visit: Yes Status: Acute Code(s): J18.9 - PNEUMONIA, UNSPECIFIED ORGANISM SNOMED Code(s): 085816475 Plan: 1patient was in the hospital with sepsis in this patient with fever tachycardia elevated white count source right lower lobe pneumonia likely community-acquired pathogen in this patient who do have underlying history of COPD and compromised lung. 2blood cultures currently pending sputum has not been collected procalcitonin level is pending. 3patient did have some clinical improvement we will get the patient on Rocephin and Zithromax while waiting for the culture to finalize and monitor clinical course closely Dictation was produced using [employer] dictation software. please excuse any grammatical, word or spelling errors. Time with Patient: Less than 30
[2022-10-11] MEDS: IPRATROPIUM-ALBUTEROL 3 ML NEB INHALATION SCH ×4 (08:27→21:06)
[2022-10-11] MEDS: FORMOTEROL FUMARATE 20 MCG/2 ML NEBU INHALATION SCH ×2 (08:27→21:06)
[2022-10-11] MEDS: BUDESONIDE 1 MG/2 ML NEBU INHALATION SCH ×2 (08:27→21:06)
[2022-10-11] MEDS: PANTOPRAZOLE 40 MG TABLET PO SCH ×2 (09:25→20:48)
[2022-10-11] MEDS: HYDROcodone/APAP 5-325MG 1 EACH TAB PO SCH ×2 (09:25→20:47)
[2022-10-11] MEDS: ASPIRIN 81 MG PO SCH (09:25)
[2022-10-11] MEDS: METOPROLOL TARTRATE 25 MG TAB PO SCH ×3 (09:25→20:48)
[2022-10-11] MEDS: ENOXAPARIN 40 MG/0.4 ML SYRINGE SQ SCH (09:27)
[2022-10-11] MEDS: POTASSIUM CHLORIDE ER 10 MEQ TAB.ER.PRT PO SCH (09:28)
[2022-10-11] MEDS: AZITHROMYCIN 500 MG TAB PO SCH (10:16)
[2022-10-11 10:56] LABS: HCT 37.3 % (37.2-46.3); HGB 11.2 d/dL (12.0-15.0); MCH 27.3 pg (27.0-32.0); MCV 90.8 FL (80.0-97.0); Mean Platelet Volume 10.7 FL (9.5-12.2); NRBC Per 100 WBC 0 X 10*3/uL (0.00-0.01); Platelet Count 252 X 10*3/uL (140-440); RBC 4.11 X 10*6/uL (4.10-5.20); RDW 14.4 % (11.5-14.5); WBC 7.33 X 10*3/uL (4.50-10.00)
[2022-10-11 11:07] LABS: Blood Urea Nitrogen 15.1 mg/dL (9.0-27.0); Carbon Dioxide 24.6 mmol/L (21.6-31.8); Chloride 107 mmol/L (96-109); Glucose 136 mg/dL (70-110); Potassium 3.8 mmol/L (3.5-5.5); Sodium 142 mmol/L (135-145)
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
--- NOTE | 2022-10-11 12:57 | P.PN ---
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 She is on home oxygen at 1 L/m per nasal cannula mainly at night. She is on Trelegy and albuterol. She presented here to the emergency room yesterday with complaints of increasing shortness of breath, cough and congestion. Chest x-ray shows multifocal patchy airspace opacities within the right mid and lower lung consistent with pneumonia. CT angiogram ruled out pulmonary embolism. There is a right lower lobe pneumonia noted. Mild to moderate emphysematous changes. She is having complaints of left lower leg discomfort and DVT was ruled out. White count 15.2. Hemoglobin 13.2. Platelets 164. D-dimer 5.24. Sodium 133. Potassium 3.4. Bicarb 27. BUN 17. Creatinine 0.68. AST 17. ALT 17. Troponins negative 3. Huerta virus not detected. She's been initiated and DuoNeb inhalations, Pulmicort and Perforomist inhalations, Solu-Medrol. Antibiotics for ceftriaxone and azithromycin. On today's evaluation of 10/10/2022, the patient is being seen for a follow-up. The patient has COPD and she is auction dependent and the patient has been maintained on Trelegy Ellipta on outpatient basis. She presented to us with worsening shortness of breath and patchy pulmonary infiltrates involving the lower lobes consistent with pneumonia and currently is on a combination of Rocephin and Zithromax and she is also on bronchodilators and steroids. The white cell count of 9.1 which is about compared to yesterday with a hemoglobin of 11.1 and a BUN is at 10 with a creatinine of 0.5 and a sodium level is at 141. The blood cultures are still negative for now. No other new complaints otherwise. The patient on oxygen at 3 L with a pulse ox of 94%, slightly improved compared to yesterday. 10/11/2022, the patient is being seen for a follow-up. As stated earlier, the patient is extensive and severe COPD addition to the right lower lobe consolidation/pneumonia. The patient remains on a combination of Rocephin and Zithromax. Her cough is less congested. She is still short of breath and she is oxygen dependent. Blood work from today shows a white second of 7.3 with a hemoglobin of 11.1, BUN is at 50 with a creatinine of 0.5 and a sodium level is at 142. A repeat chest x-ray will be ordered for tomorrow. Echo cardiac exam was done yesterday and the patient is a preserved LV function and the patient has no significant valvular abnormalities. No altered mentation. Objective - Vital Signs Vital signs: Vital Signs Temp 97.4 F L 10/11/22 07:48 Pulse 104 H 10/11/22 08:48 Resp 17 10/11/22 07:48 BP 122/74 10/11/22 07:48 Pulse Ox 97 10/11/22 08:27 FiO2 21 10/10/22 07:26 Intake & Output 10/10/22 10/11/22 10/11/22 18:59 06:59 18:59 Other: Voiding Method Toilet # Voids 2 - Exam GENERAL EXAM: Alert, pleasant 62-year-old female, on 3 L nasal cannula, fairly comfortable in no apparent distress. HEAD: Normocephalic. EYES: Normal reaction of pupils, equal size. NOSE: Clear with pink turbinates. THROAT: No erythema or exudates. NECK: No masses, no JVD. CHEST: No chest wall deformity. LUNGS: Equal air entry with bilateral scattered rhonchi right greater than left. CVS: S1 and S2 normal with no audible murmur, regular rhythm. ABDOMEN: No hepatosplenomegaly, normal bowel sounds, no guarding or rigidity. SPINE: No scoliosis or deformity SKIN: No rashes CENTRAL NERVOUS SYSTEM: No focal deficits, tone is normal in all 4 extremities. EXTREMITIES: There is no peripheral edema. No clubbing, no cyanosis. Peripheral pulses are intact. - Labs CBC & Chem 7: 10/11/22 06:52 10/11/22 06:52 Labs: Abnormal Lab Results - Last 24 Hours (Table) 10/11/22 10/11/22 Range/Units 06:52 06:52 Hgb 11.2 L (12.0-15.0) d/dL MCHC 30.0 L (32.0-37.0) d/dL Creatinine 0.5 L (0.6-1.5) mg/dL BUN/Creatinine Ratio 30.20 H (12.00-20.00) Ratio Glucose 136 H (70-110) mg/dL Microbiology - Last 24 Hours (Table) 10/10/22 05:30 Gram Stain - Preliminary Sputum 10/08/22 12:50 Blood Culture - Preliminary Blood 10/08/22 12:35 Blood Culture - Preliminary Blood Assessment and Plan Plan: Acute on chronic hypoxemic respiratory failure secondary to community-acquired pneumonia. The same time, the patient has a right hilar lymphadenopathy largest measuring 3.7 cm in size and she would benefit from a bronchoscopy and endobronchial ultrasound at the later stage and once her pneumonia has cleared. Right lower lobe pneumonia/consolidation, awaiting follow-up chest x-ray from today Acute exacerbation of chronic obstructive pulmonary disease secondary to above, currently on accommodation bronco diuretics and steroids History of oxygen dependent chronic obstructive pulmonary disease Former smoker Hypertension Hyperlipidemia Gastroesophageal reflux disease History of depression Plan: Continues to improve clinically although recovery slow Repeat chest x-ray today to evaluate the right lower lobe consolidation Continue same treatment CAT scan, chest x-rays, labs and medications reviewed, and the CAT scan of the chest with a right lower lobe pulmonary infiltrate/pneumonia and the patient has multiple right hilar lymph nodes largest measuring about 3.7 cm in size, and this is to be worked up on outpatient basis at the later stage. She may benefit from endobronchial ultrasound and transbronchial needle aspirate of the hilar lymph nodes. Continue DuoNeb inhalations, Pulmicort and Perforomist inhalations Continue Solu-Medrol Continue antibiotics Titrate the FiO2 as tolerated We will continue to follow and make further recommendations based on her clinical status
--- NOTE | 2022-10-11 13:51 | XR ---
EXAMINATION TYPE: XR chest 1V DATE OF EXAM: 10/11/2022 1:41 PM COMPARISON: Chest radiographs from 10/09/2022 TECHNIQUE: XR chest 1V Frontal view of the chest. CLINICAL INDICATION:Female, 62 years old with history of pneumonia; FINDINGS: Lungs/Pleura: No pleural effusion or pneumothorax. Improvement in previously demonstrated right mid a nd lower lung airspace opacities. Linear atelectasis within the right midlung. Pulmonary vascularity: Unremarkable. Heart/mediastinum: Cardiomediastinal silhouette is unremarkable. Musculoskeletal: No acute osseous pathology. Status post T11 L1 posterior lumbar fusion bridging T12 compression fracture status post vertebroplasty changes. IMPRESSION: Improvement in previously demonstrated right mid and lower lung airspace opacities.
--- NOTE | 2022-10-11 16:22 | P.PN ---
Subjective Progress Note Date: 10/11/22 Principal diagnosis: Pneumonia Patient is a 62-year-old female with a past medical history significant for hypertension hyperlipidemia asthma/COPD presenting to the [facility] for evaluation of right posterior chest discomfort patient's symptom has been going on for 3 days before presentation to the hospital,chest x-ray multifocal patchy airspace opacity within the right mid and lower lung , CT angiogram of the chest that was negative for PE however did shows evidence of right lower lobe pneumonia On today's evaluation that is 10/11/2022 patient remains to be afebrile, patient is breathing slightly comfortably on 3 L nasal cannula oxygen patient right- sided chest pain has decreased in intensity , patient denies any worsening cough or sputum production, patient denies any nausea no vomiting no abdominal pain no diarrhea. The patient white count is 7.33, creatinine 0.5, blood and culture are currently pending Objective - Vital Signs Vital signs: Vital Signs Temp 97.4 F L 10/11/22 07:48 Pulse 64 10/11/22 12:17 Resp 17 10/11/22 07:48 BP 122/74 10/11/22 07:48 Pulse Ox 95 10/11/22 09:00 FiO2 21 10/10/22 07:26 Intake & Output 10/10/22 10/11/22 10/11/22 18:59 06:59 18:59 Other: Voiding Method Toilet # Voids 2 - Exam GENERAL DESCRIPTION: Middle-age female lying in bed in no distress RESPIRATORY SYSTEM: Unlabored breathing , coarse breath sounds at bases HEART: S1 S2 regular rate and rhythm ,no loud murmurs ABDOMEN: Soft , no tenderness EXTREMITIES: No edema feet - Labs CBC & Chem 7: 10/11/22 06:52 10/11/22 06:52 Labs: Abnormal Lab Results - Last 24 Hours (Table) 10/11/22 10/11/22 Range/Units 06:52 06:52 Hgb 11.2 L (12.0-15.0) d/dL MCHC 30.0 L (32.0-37.0) d/dL Creatinine 0.5 L (0.6-1.5) mg/dL BUN/Creatinine Ratio 30.20 H (12.00-20.00) Ratio Glucose 136 H (70-110) mg/dL Microbiology - Last 24 Hours (Table) 10/10/22 05:30 Gram Stain - Preliminary Sputum 10/08/22 12:50 Blood Culture - Preliminary Blood 10/08/22 12:35 Blood Culture - Preliminary Blood Assessment and Plan (1) Pneumonia Current Visit: Yes Status: Acute Code(s): J18.9 - PNEUMONIA, UNSPECIFIED ORGANISM SNOMED Code(s): 399559894 Plan: 1patient was in the hospital with sepsis in this patient with fever tachycardia elevated white count source right lower lobe pneumonia likely community-acquired pathogen in this patient who do have underlying history of COPD and compromised lung. 2blood and sputum cultures are currently pending 3patient did have some clinical improvement, the patient will continue on Rocephin and Zithromax while waiting for the culture to finalize and monitor clinical course closely Dictation was produced using [employer] dictation software. please excuse any grammatical, word or spelling errors. Time with Patient: Less than 30
[2022-10-11] MEDS: DULoxetine HCL 60 MG CAPSULE.DR PO SCH (20:47)
[2022-10-11] MEDS: ATORVASTATIN 20 MG TAB PO SCH (20:48)
[2022-10-12] MEDS: methylPREDNISolone SOD SUCCI 125 MG/2 ML VIAL IV SCH ×2 (00:27→05:23)
[2022-10-12] MEDS: FORMOTEROL FUMARATE 20 MCG/2 ML NEBU INHALATION SCH ×2 (07:28→20:19)
[2022-10-12] MEDS: IPRATROPIUM-ALBUTEROL 3 ML NEB INHALATION SCH ×4 (07:28→20:19)
[2022-10-12] MEDS: BUDESONIDE 1 MG/2 ML NEBU INHALATION SCH ×2 (07:29→20:19)
[2022-10-12] MEDS: AZITHROMYCIN 500 MG TAB PO SCH (09:03)
[2022-10-12] MEDS: POTASSIUM CHLORIDE ER 10 MEQ TAB.ER.PRT PO SCH (09:04)
[2022-10-12] MEDS: ASPIRIN 81 MG PO SCH (09:04)
[2022-10-12] MEDS: PANTOPRAZOLE 40 MG TABLET PO SCH ×2 (09:04→21:42)
[2022-10-12] MEDS: HYDROcodone/APAP 5-325MG 1 EACH TAB PO SCH ×2 (09:04→21:41)
[2022-10-12] MEDS: ENOXAPARIN 40 MG/0.4 ML SYRINGE SQ SCH (09:05)
[2022-10-12] MEDS: SODIUM CHLORIDE 0.9% 1,000 ML IV SCH ×2 (09:06→18:57)
[2022-10-12] MEDS: methylPREDNISolone SOD SUCCI 40 MG/ML 1 ML VIAL IV SCH ×2 (11:13→21:42)
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
[2022-10-12] MEDS: guaiFENesin 600 MG TABLET.ER PO SCH ×2 (13:27→22:00)
--- NOTE | 2022-10-12 17:47 | P.PN ---
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 She is on home oxygen at 1 L/m per nasal cannula mainly at night. She is on Trelegy and albuterol. She presented here to the emergency room yesterday with complaints of increasing shortness of breath, cough and congestion. Chest x-ray shows multifocal patchy airspace opacities within the right mid and lower lung consistent with pneumonia. CT angiogram ruled out pulmonary embolism. There is a right lower lobe pneumonia noted. Mild to moderate emphysematous changes. She is having complaints of left lower leg discomfort and DVT was ruled out. White count 15.2. Hemoglobin 13.2. Platelets 164. D-dimer 5.24. Sodium 133. Potassium 3.4. Bicarb 27. BUN 17. Creatinine 0.68. AST 17. ALT 17. Troponins negative 3. Huerta virus not detected. She's been initiated and DuoNeb inhalations, Pulmicort and Perforomist inhalations, Solu-Medrol. Antibiotics for ceftriaxone and azithromycin. On today's evaluation of 10/10/2022, the patient is being seen for a follow-up. The patient has COPD and she is auction dependent and the patient has been maintained on Trelegy Ellipta on outpatient basis. She presented to us with worsening shortness of breath and patchy pulmonary infiltrates involving the lower lobes consistent with pneumonia and currently is on a combination of Rocephin and Zithromax and she is also on bronchodilators and steroids. The white cell count of 9.1 which is about compared to yesterday with a hemoglobin of 11.1 and a BUN is at 10 with a creatinine of 0.5 and a sodium level is at 141. The blood cultures are still negative for now. No other new complaints otherwise. The patient on oxygen at 3 L with a pulse ox of 94%, slightly improved compared to yesterday. 10/11/2022, the patient is being seen for a follow-up. As stated earlier, the patient is extensive and severe COPD addition to the right lower lobe consolidation/pneumonia. The patient remains on a combination of Rocephin and Zithromax. Her cough is less congested. She is still short of breath and she is oxygen dependent. Blood work from today shows a white second of 7.3 with a hemoglobin of 11.1, BUN is at 50 with a creatinine of 0.5 and a sodium level is at 142. A repeat chest x-ray will be ordered for tomorrow. Echo cardiac exam was done yesterday and the patient is a preserved LV function and the patient has no significant valvular abnormalities. No altered mentation. 10/12/2022, seeing the patient for a follow-up. Clinically, the patient is feeling better and she reports being less short of breath compared to yesterday. She has a extensive right lower lobe pneumonia with consolidation in the right hilar lymphadenopathy. The repeat chest x-ray was not and the chest x-ray showing improvement in the right lower lobe consolidation. The patient remains on Zithromax. The sputum sample showed Sofiya albicans. The discomfort at 7.3, hemoglobin is 11.2, BUN is 50 with a creatinine of 0.5. Otherwise, no oth er significant events. The patient is on normal saline at rate of 100 mL an hour. She is on DuoNeb about treatments pH is also on a combination of Perforomist and Pulmicort. She is on IV Solu-Medrol 40 mg every 12 hours. Echo cardiac rhythm showed a preserved LV function. Objective - Vital Signs Vital signs: Vital Signs Temp 98.0 F 10/12/22 08:04 Pulse 82 10/12/22 08:04 Resp 20 10/12/22 08:04 BP 136/73 10/12/22 08:04 Pulse Ox 93 L 10/12/22 08:04 FiO2 21 10/10/22 07:26 Intake & Output 10/11/22 10/12/22 10/12/22 18:59 06:59 18:59 Other: Voiding Method Bedside Commode # Voids 2 1 - Exam GENERAL EXAM: Alert, pleasant 62-year-old female, on 3 L nasal cannula, fairly comfortable in no apparent distress. HEAD: Normocephalic. EYES: Normal reaction of pupils, equal size. NOSE: Clear with pink turbinates. THROAT: No erythema or exudates. NECK: No masses, no JVD. CHEST: No chest wall deformity. LUNGS: Equal air entry with bilateral scattered rhonchi right greater than left. CVS: S1 and S2 normal with no audible murmur, regular rhythm. ABDOMEN: No hepatosplenomegaly, normal bowel sounds, no guarding or rigidity. SPINE: No scoliosis or deformity SKIN: No rashes CENTRAL NERVOUS SYSTEM: No focal deficits, tone is normal in all 4 extremities. EXTREMITIES: There is no peripheral edema. No clubbing, no cyanosis. Peripheral pulses are intact. - Labs CBC & Chem 7: 10/11/22 06:52 10/11/22 06:52 Labs: Abnormal Lab Results - Last 24 Hours (Table) 10/11/22 Range/Units 06:52 Creatinine 0.5 L (0.6-1.5) mg/dL BUN/Creatinine Ratio 30.20 H (12.00-20.00) Ratio Glucose 136 H (70-110) mg/dL Microbiology - Last 24 Hours (Table) 10/08/22 12:50 Blood Culture - Preliminary Blood 10/08/22 12:35 Blood Culture - Preliminary Blood 10/10/22 05:30 Gram Stain - Preliminary Sputum Assessment and Plan Plan: Acute on chronic hypoxemic respiratory failure secondary to community-acquired pneumonia. The same time, the patient has a right hilar lymphadenopathy largest measuring 3.7 cm in size and she would benefit from a bronchoscopy and endobronchial ultrasound at the later stage and once her pneumonia has cleared. Right lower lobe pneumonia/consolidation, awaiting follow-up chest x-ray from today Acute exacerbation of chronic obstructive pulmonary disease secondary to above, currently on accommodation bronco diuretics and steroids History of oxygen dependent chronic obstructive pulmonary disease Former smoker Hypertension Hyperlipidemia Gastroesophageal reflux disease History of depression Plan: Continues to improve clinically although recovery slow Right lower lobe pneumonia is improving based on follow-up chest x-ray Continue same treatment CAT scan, chest x-rays, labs and medications reviewed, and the CAT scan of the chest with a right lower lobe pulmonary infiltrate/pneumonia and the patient has multiple right hilar lymph nodes largest measuring about 3.7 cm in size, and this is to be worked up on outpatient basis at the later stage. She may benefit from endobronchial ultrasound and transbronchial needle aspirate of the hilar ly mph nodes. Continue DuoNeb inhalations, Pulmicort and Perforomist inhalations Continue Solu-Medrol, dose has been tapered to 40 mg every 12 hours Continue antibiotics Titrate the FiO2 as tolerated We will continue to follow and make further recommendations based on her clinical status
[2022-10-12] MEDS: METOPROLOL TARTRATE 25 MG TAB PO SCH (21:41)
[2022-10-12] MEDS: ATORVASTATIN 20 MG TAB PO SCH (21:42)
[2022-10-12] MEDS: DULoxetine HCL 60 MG CAPSULE.DR PO SCH (21:42)
[2022-10-13] MEDS: SODIUM CHLORIDE 0.9% 1,000 ML IV SCH ×3 (03:37→19:48)
[2022-10-13] MEDS: methylPREDNISolone SOD SUCCI 40 MG/ML 1 ML VIAL IV SCH (08:29)
[2022-10-13] MEDS: HYDROcodone/APAP 5-325MG 1 EACH TAB PO SCH ×2 (08:40→19:47)
[2022-10-13] MEDS: ENOXAPARIN 40 MG/0.4 ML SYRINGE SQ SCH (08:40)
[2022-10-13] MEDS: POTASSIUM CHLORIDE ER 10 MEQ TAB.ER.PRT PO SCH (08:40)
[2022-10-13] MEDS: PANTOPRAZOLE 40 MG TABLET PO SCH ×2 (08:40→19:48)
[2022-10-13] MEDS: ASPIRIN 81 MG PO SCH (08:41)
[2022-10-13] MEDS: METOPROLOL TARTRATE 25 MG TAB PO SCH ×2 (08:41→19:47)
[2022-10-13] MEDS: guaiFENesin 600 MG TABLET.ER PO SCH ×2 (08:41→19:48)
[2022-10-13] MEDS: AZITHROMYCIN 500 MG TAB PO SCH (08:41)
[2022-10-13] MEDS: FORMOTEROL FUMARATE 20 MCG/2 ML NEBU INHALATION SCH ×2 (08:56→20:35)
[2022-10-13] MEDS: BUDESONIDE 1 MG/2 ML NEBU INHALATION SCH ×2 (08:57→20:35)
[2022-10-13] MEDS: IPRATROPIUM-ALBUTEROL 3 ML NEB INHALATION SCH ×4 (08:57→20:35)
[2022-10-13] MEDS: predniSONE 20 MG TAB PO SCH (11:14)
[2022-10-13 14:37] LABS: HCT 39.8 % (37.2-46.3); MCH 27.6 pg (27.0-32.0); MCHC 30.2 d/dL (32.0-37.0); MCV 91.5 FL (80.0-97.0); Mean Platelet Volume 10.8 FL (9.5-12.2); NRBC Per 100 WBC 0 X 10*3/uL (0.00-0.01); Platelet Count 340 X 10*3/uL (140-440); RBC 4.35 X 10*6/uL (4.10-5.20); RDW 14.3 % (11.5-14.5); WBC 9.61 X 10*3/uL (4.50-10.00)
--- NOTE | 2022-10-13 17:05 | P.PN ---
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 She is on home oxygen at 1 L/m per nasal cannula mainly at night. She is on Trelegy and albuterol. She presented here to the emergency room yesterday with complaints of increasing shortness of breath, cough and congestion. Chest x-ray shows multifocal patchy airspace opacities within the right mid and lower lung consistent with pneumonia. CT angiogram ruled out pulmonary embolism. There is a right lower lobe pneumonia noted. Mild to moderate emphysematous changes. She is having complaints of left lower leg discomfort and DVT was ruled out. White count 15.2. Hemoglobin 13.2. Platelets 164. D-dimer 5.24. Sodium 133. Potassium 3.4. Bicarb 27. BUN 17. Creatinine 0.68. AST 17. ALT 17. Troponins negative 3. Huerta virus not detected. She's been initiated and DuoNeb inhalations, Pulmicort and Perforomist inhalations, Solu-Medrol. Antibiotics for ceftriaxone and azithromycin. On today's evaluation of 10/10/2022, the patient is being seen for a follow-up. The patient has COPD and she is auction dependent and the patient has been maintained on Trelegy Ellipta on outpatient basis. She presented to us with worsening shortness of breath and patchy pulmonary infiltrates involving the lower lobes consistent with pneumonia and currently is on a combination of Rocephin and Zithromax and she is also on bronchodilators and steroids. The white cell count of 9.1 which is about compared to yesterday with a hemoglobin of 11.1 and a BUN is at 10 with a creatinine of 0.5 and a sodium level is at 141. The blood cultures are still negative for now. No other new complaints otherwise. The patient on oxygen at 3 L with a pulse ox of 94%, slightly improved compared to yesterday. 10/11/2022, the patient is being seen for a follow-up. As stated earlier, the patient is extensive and severe COPD addition to the right lower lobe consolidation/pneumonia. The patient remains on a combination of Rocephin and Zithromax. Her cough is less congested. She is still short of breath and she is oxygen dependent. Blood work from today shows a white second of 7.3 with a hemoglobin of 11.1, BUN is at 50 with a creatinine of 0.5 and a sodium level is at 142. A repeat chest x-ray will be ordered for tomorrow. Echo cardiac exam was done yesterday and the patient is a preserved LV function and the patient has no significant valvular abnormalities. No altered mentation. 10/12/2022, seeing the patient for a follow-up. Clinically, the patient is feeling better and she reports being less short of breath compared to yesterday. She has a extensive right lower lobe pneumonia with consolidation in the right hilar lymphadenopathy. The repeat chest x-ray was not and the chest x-ray showing improvement in the right lower lobe consolidation. The patient remains on Zithromax. The sputum sample showed Sofiya albicans. The discomfort at 7.3, hemoglobin is 11.2, BUN is 50 with a creatinine of 0.5. Otherwise, no oth er significant events. The patient is on normal saline at rate of 100 mL an hour. She is on DuoNeb about treatments pH is also on a combination of Perforomist and Pulmicort. She is on IV Solu-Medrol 40 mg every 12 hours. Echo cardiac rhythm showed a preserved LV function. 10/13/2022, the patient is doing well. No new complaints. She is gradually improving. Right lower lobe pneumonia is being treated with a combination of Rocephin and Zithromax. She was maintained also on a combination of bronchodilators and steroids. She is currently on 2 L of O2 nasal cannula with pulse ox of 94%. The sputum sample for Sofiya. The white cell cause of 9.6 with a hemoglobin of 12. No other significant events over the past 24 hours. She is gradually improving. Objective - Vital Signs Vital signs: Vital Signs Temp 98.5 F 10/13/22 07:21 Pulse 72 10/13/22 09:15 Resp 17 10/13/22 07:21 BP 169/81 10/13/22 07:21 Pulse Ox 93 L 10/13/22 07:21 FiO2 21 10/10/22 07:26 Intake & Output 10/12/22 10/13/22 10/13/22 18:59 06:59 18:59 Other: Voiding Method Toilet # Voids 2 1 - Exam GENERAL EXAM: Alert, pleasant 62-year-old female, on 3 L nasal cannula, fairly comfortable in no apparent distress. HEAD: Normocephalic. EYES: Normal reaction of pupils, equal size. NOSE: Clear with pink turbinates. THROAT: No erythema or exudates. NECK: No masses, no JVD. CHEST: No chest wall deformity. LUNGS: Equal air entry with bilateral scattered rhonchi right greater than left. CVS: S1 and S2 normal with no audible murmur, regular rhythm. ABDOMEN: No hepatosplenomegaly, normal bowel sounds, no guarding or rigidity. SPINE: No scoliosis or deformity SKIN: No rashes CENTRAL NERVOUS SYSTEM: No focal deficits, tone is normal in all 4 extremities. EXTREMITIES: There is no peripheral edema. No clubbing, no cyanosis. Peripheral pulses are intact. - Labs CBC & Chem 7: 10/13/22 05:17 10/11/22 06:52 Labs: Microbiology - Last 24 Hours (Table) 10/10/22 05:30 Gram Stain - Final Sputum Sputum Culture - Final Sofiya species, not albicans Assessment and Plan Plan: Acute on chronic hypoxemic respiratory failure secondary to community-acquired pneumonia. The same time, the patient has a right hilar lymphadenopathy largest measuring 3.7 cm in size and she would benefit from a bronchoscopy and endobronchial ultrasound at the later stage and once her pneumonia has cleared. Right lower lobe pneumonia/consolidation, awaiting follow-up chest x-ray showed improvement in the right lower lobe consolidation Acute exacerbation of chronic obstructive pulmonary disease secondary to above, currently on accommodation bronco diuretics and steroids, improving History of oxygen dependent chronic obstructive pulmonary disease Former smoker Hypertension Hyperlipidemia Gastroesophageal reflux disease History of depression Plan: Continues to improve clinically although recovery slow Right lower lobe pneumonia is improving based on follow-up chest x-ray Continue same treatment Discontinue the IV Solu-Medrol and start the patient on prednisone burst taper CAT scan, chest x-rays, labs and medications reviewed, and the CAT scan of the chest with a right lower lobe pulmonary infiltrate/pneumonia and the patient has multiple right hilar lymph nodes largest measuring about 3.7 cm in size, and this is to be worked up on outpatient basis at the later stage. She may benefit from endobronchial ultrasound and transbronchial needle aspirate of the hilar lymph nodes. Continue DuoNeb inhalations, Pulmicort and Perforomist inhalations Increase mobility Continue antibiotics, pneumonia is improving Titrate the FiO2 as tolerated We will continue to follow and make further recommendations based on her clinical status
[2022-10-13] MEDS: DULoxetine HCL 60 MG CAPSULE.DR PO SCH (19:47)
[2022-10-13] MEDS: ATORVASTATIN 20 MG TAB PO SCH (19:47)
--- NOTE | 2022-10-14 00:30 | P.PN ---
Subjective This is a pleasant 62 years old female with multiple medical problems presents with respiratory symptoms found to have right lower lobe pneumonia with right hilar lymphadenopathy, the largest is about 3.70 cm and with acute COPD exacerbation, she was been evaluated by ID team and housekeeper and laundry assistant and patient is currently covered with IV Solu-Medrol and switched to prednisone 40 mg daily. Normal saline and Zithromax and ceftriaxone. Sputum culture showing Sofiya albicans. CTA was negative for pulmonary embolism but showing the RLL pneumonia and right hilar lymphadenopathy. Patient still have some type chest today. Pulmonary team on the case and they recommended outpatient workup for her hilar lymphadenopathy. Possible discharge in 24-48 hours if she keeps improving Objective - Vital Signs Vital signs: Vital Signs Temp 97.8 F 10/13/22 13:26 Pulse 74 10/13/22 13:26 Resp 18 10/13/22 13:26 BP 127/78 10/13/22 13:26 Pulse Ox 94 L 10/13/22 13:26 FiO2 21 10/10/22 07:26 Intake & Output 10/12/22 10/13/22 10/13/22 18:59 06:59 18:59 Other: Voiding Method Toilet # Voids 2 1 - Exam GENERAL: The patient is alert and oriented x3, not in any acute distress. Well developed, well nourished. HEENT: Pupils are round and equally reacting to light. EOMI. No scleral icterus. No conjunctival pallor. Normocephalic, atraumatic. No pharyngeal erythema. No thyromegaly. CARDIOVASCULAR: S1 and S2 present. No murmurs, rubs, or gallops. PULMONARY: Chest is clear to auscultation, no wheezing , no crackles. ABDOMEN: Soft, nontender, nondistended, normoactive bowel sounds. No palpable organomegaly. MUSCULOSKELETAL: No joint swelling or deformity. EXTREMITIES: No cyanosis, clubbing, or pedal edema. NEUROLOGICAL: Gross neurological examination did not reveal any focal deficits. SKIN: No rashes. no petechiae. - Labs CBC & Chem 7: 10/13/22 05:17 10/11/22 06:52 Labs: Abnormal Lab Results - Last 24 Hours (Table) 10/13/22 Range/Units 05:17 MCHC 30.2 L (32.0-37.0) d/dL Microbiology - Last 24 Hours (Table) 10/10/22 05:30 Gram Stain - Final Sputum Sputum Culture - Final Sofiya species, not albicans Assessment and Plan Assessment: Bacterial pneumonia, right lower lobe pneumonia with right hilar lymphadenopathy Acute on chronic hypoxemic respiratory failure baseline 1 L of oxygen Acute COPD exacerbation Acute on chronic hypoxic respiratory failure History of COPD Sepsis Plan: Continue with ceftriaxone. Continue with the prednisone. Pulmonary and ID team consult Outpatient workup for hilar lymphadenopathy Labs and medication were reviewed.. Continue same treatment. Continue with symptomatic treatment. Resume home medication. Monitor labs and vitals. DVT and GI prophylaxis. Further recommendations as per clinical course of the patient DVT prophylaxis: Subcutaneous Lovenox GI Prophylaxis: Ppi Prognosis is guarded
[2022-10-14 00:53] LABS: BUN/Creat Ratio 28.86 Ratio (12.00-20.00); Blood Urea Nitrogen 20.2 mg/dL (9.0-27.0); Calcium 8.8 mg/dL (8.7-10.3); Carbon Dioxide 25.3 mmol/L (21.6-31.8); Chloride 107 mmol/L (96-109); Glucose 129 mg/dL (70-110); Potassium 3.7 mmol/L (3.5-5.5); Sodium 141 mmol/L (135-145)
[2022-10-14] MEDS: IPRATROPIUM-ALBUTEROL 3 ML NEB INHALATION SCH ×3 (07:50→15:43)
[2022-10-14] MEDS: BUDESONIDE 1 MG/2 ML NEBU INHALATION SCH (07:50)
[2022-10-14] MEDS: FORMOTEROL FUMARATE 20 MCG/2 ML NEBU INHALATION SCH (07:50)
[2022-10-14] MEDS: SODIUM CHLORIDE 0.9% 1,000 ML IV SCH (09:14)
[2022-10-14] MEDS: ENOXAPARIN 40 MG/0.4 ML SYRINGE SQ SCH (09:21)
[2022-10-14] MEDS: predniSONE 20 MG TAB PO SCH (09:22)
[2022-10-14] MEDS: HYDROcodone/APAP 5-325MG 1 EACH TAB PO SCH (09:22)
[2022-10-14] MEDS: POTASSIUM CHLORIDE ER 10 MEQ TAB.ER.PRT PO SCH (09:22)
[2022-10-14] MEDS: PANTOPRAZOLE 40 MG TABLET PO SCH (09:22)
[2022-10-14] MEDS: METOPROLOL TARTRATE 25 MG TAB PO SCH (09:22)
[2022-10-14] MEDS: guaiFENesin 600 MG TABLET.ER PO SCH (09:22)
[2022-10-14] MEDS: ASPIRIN 81 MG PO SCH (09:22)
[2022-10-14] MEDS: AZITHROMYCIN 500 MG TAB PO SCH (09:23)
[2022-10-14 09:41] VITALS: RESP 18
--- NOTE | 2022-10-14 14:39 | P.PN ---
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 She is on home oxygen at 1 L/m per nasal cannula mainly at night. She is on Trelegy and albuterol. She presented here to the emergency room yesterday with complaints of increasing shortness of breath, cough and congestion. Chest x-ray shows multifocal patchy airspace opacities within the right mid and lower lung consistent with pneumonia. CT angiogram ruled out pulmonary embolism. There is a right lower lobe pneumonia noted. Mild to moderate emphysematous changes. She is having complaints of left lower leg discomfort and DVT was ruled out. White count 15.2. Hemoglobin 13.2. Platelets 164. D-dimer 5.24. Sodium 133. Potassium 3.4. Bicarb 27. BUN 17. Creatinine 0.68. AST 17. ALT 17. Troponins negative 3. Huerta virus not detected. She's been initiated and DuoNeb inhalations, Pulmicort and Perforomist inhalations, Solu-Medrol. Antibiotics for ceftriaxone and azithromycin. On today's evaluation of 10/10/2022, the patient is being seen for a follow-up. The patient has COPD and she is auction dependent and the patient has been maintained on Trelegy Ellipta on outpatient basis. She presented to us with worsening shortness of breath and patchy pulmonary infiltrates involving the lower lobes consistent with pneumonia and currently is on a combination of Rocephin and Zithromax and she is also on bronchodilators and steroids. The white cell count of 9.1 which is about compared to yesterday with a hemoglobin of 11.1 and a BUN is at 10 with a creatinine of 0.5 and a sodium level is at 141. The blood cultures are still negative for now. No other new complaints otherwise. The patient on oxygen at 3 L with a pulse ox of 94%, slightly improved compared to yesterday. 10/11/2022, the patient is being seen for a follow-up. As stated earlier, the patient is extensive and severe COPD addition to the right lower lobe consolidation/pneumonia. The patient remains on a combination of Rocephin and Zithromax. Her cough is less congested. She is still short of breath and she is oxygen dependent. Blood work from today shows a white second of 7.3 with a hemoglobin of 11.1, BUN is at 50 with a creatinine of 0.5 and a sodium level is at 142. A repeat chest x-ray will be ordered for tomorrow. Echo cardiac exam was done yesterday and the patient is a preserved LV function and the patient has no significant valvular abnormalities. No altered mentation. 10/12/2022, seeing the patient for a follow-up. Clinically, the patient is feeling better and she reports being less short of breath compared to yesterday. She has a extensive right lower lobe pneumonia with consolidation in the right hilar lymphadenopathy. The repeat chest x-ray was not and the chest x-ray showing improvement in the right lower lobe consolidation. The patient remains on Zithromax. The sputum sample showed Sofiya albicans. The discomfort at 7.3, hemoglobin is 11.2, BUN is 50 with a creatinine of 0.5. Otherwise, no oth er significant events. The patient is on normal saline at rate of 100 mL an hour. She is on DuoNeb about treatments pH is also on a combination of Perforomist and Pulmicort. She is on IV Solu-Medrol 40 mg every 12 hours. Echo cardiac rhythm showed a preserved LV function. 10/13/2022, the patient is doing well. No new complaints. She is gradually improving. Right lower lobe pneumonia is being treated with a combination of Rocephin and Zithromax. She was maintained also on a combination of bronchodilators and steroids. She is currently on 2 L of O2 nasal cannula with pulse ox of 94%. The sputum sample for Sofiya. The white cell cause of 9.6 with a hemoglobin of 12. No other significant events over the past 24 hours. She is gradually improving. 10/14/2022, the patient is doing well. No specific complaints. Shortness of breath is gradually improving. She remains on IV Rocephin. She is on a prednisone burst taper. She remains on bronchodilators. She uses trilogy lift on outpatient basis. She is interested in switching to nebulized inhaled corticosteroid and long-acting beta agonist and this can be arranged on outpatient basis. She remains on oxygen on 2 L. White cell count of 9.6 with a hemoglobin of 12, BUN is at 20 with a creatinine of 0.7 and a sodium level is at 141. No altered mentation. No chest pain. Objective - Vital Signs Vital signs: Vital Signs Temp 98.0 F 10/14/22 08:22 Pulse 72 10/14/22 11:27 Resp 18 10/14/22 08:22 BP 138/75 10/14/22 08:22 Pulse Ox 92 L 10/14/22 08:22 FiO2 21 10/10/22 07:26 Intake & Output 10/13/22 10/14/22 10/14/22 18:59 06:59 18:59 Other: Voiding Method Toilet # Voids 1 1 1 - Exam GENERAL EXAM: Alert, pleasant 62-year-old female, on 3 L nasal cannula, fairly comfortable in no apparent distress. HEAD: Normocephalic. EYES: Normal reaction of pupils, equal size. NOSE: Clear with pink turbinates. THROAT: No erythema or exudates. NECK: No masses, no JVD. CHEST: No chest wall deformity. LUNGS: Equal air entry with bilateral scattered rhonchi right greater than left. CVS: S1 and S2 normal with no audible murmur, regular rhythm. ABDOMEN: No hepatosplenomegaly, normal bowel sounds, no guarding or rigidity. SPINE: No scoliosis or deformity SKIN: No rashes CENTRAL NERVOUS SYSTEM: No focal deficits, tone is normal in all 4 extremities. EXTREMITIES: There is no peripheral edema. No clubbing, no cyanosis. Peripheral pulses are intact. - Labs CBC & Chem 7: 10/13/22 05:17 10/13/22 05:17 Labs: Abnormal Lab Results - Last 24 Hours (Table) 10/13/22 10/13/22 Range/Units 05:17 05:17 MCHC 30.2 L (32.0-37.0) d/dL BUN/Creatinine Ratio 28.86 H (12.00-20.00) Ratio Glucose 129 H (70-110) mg/dL C-Reactive Protein 2.10 H (0.00-0.80) mg/dL Microbiology - Last 24 Hours (Table) 10/08/22 12:50 Blood Culture - Final Blood 10/08/22 12:35 Blood Culture - Final Blood Assessment and Plan Plan: Acute on chronic hypoxemic respiratory failure secondary to community-acquired pneumonia. The same time, the patient has a right hilar lymphadenopathy largest measuring 3.7 cm in size and she would benefit from a bronchoscopy and endobronchial ultrasound at the later stage and once her pneumonia has cleared. Right lower lobe pneumonia/consolidation, awaiting follow-up chest x-ray showed improvement in the right lower lobe consolidation Acute exacerbation of chronic obstructive pulmonary disease secondary to above, currently on accommodation bronco diuretics and steroids, improving History of oxygen dependent chronic obstructive pulmonary disease Former smoker Hypertension Hyperlipidemia Gastroesophageal reflux disease History of depression Plan: Clinically stable Continue bronchodilators Continue Trelegy Ellipta on outpatient basis Albuterol nebulized treatments [id number] as needed Smoking cessation counseling was done Right lower lobe pneumonia is improving based on follow-up chest x-ray patient can be discharged home from pulmonary standpoint to be followed up on outpatient basis. Of concern is the right hilar lymph node that needs to be followed up in a outpatient CAT scan needs to be done at the later stage to assess progression of the site hilar lymph node. Endobronchial ultrasound and transbronchial needle aspirate of the lymph node will be needed if the lymph node remains unchanged. patient was agreeable.
[2022-10-14 15:29] VITALS: BP 125/69; TEMP 98.6
[2022-10-14 15:49] VITALS: PULSE 96
--- NOTE | 2022-10-14 21:50 | P.DS ---
Providers Date of admission: 10/08/22 14:42 Attending physician: Peter Garcia MD Consults: 10/08/22 14:41 Consult Physician Routine Consulting Provider: Radha Beckham Consult Reason/Comments: Pneumonia, sepsis Do you want consulting provider notified?: Yes 10/08/22 15:06 Consult Physician Routine Consulting Provider: Bear Gallo Consult Reason/Comments: Pneumonia, sepsis Do you want consulting provider notified?: Yes Primary care physician: [facility] Course: Diagnoses: Bacterial pneumonia, right lower lobe pneumonia with right hilar lymphadenopathy Acute on chronic hypoxemic respiratory failure baseline 1 L of oxygen Acute COPD exacerbation Acute on chronic hypoxic respiratory failure History of COPD Sepsis Hospital course: This is a pleasant 62 years old female with multiple medical problems presents with respiratory symptoms found to have right lower lobe pneumonia with right hilar lymphadenopathy, the largest is about 3.70 cm and with acute COPD exacerbation, she was been evaluated by ID team and biomedical engineering supervisor and patient is currently covered with IV Solu-Medrol and switched to prednisone 40 mg daily. Normal saline and Zithromax and ceftriaxone. Sputum culture showing Sofiya albicans. CTA was negative for pulmonary embolism but showing the RLL pneumonia and right hilar lymphadenopathy. Patient showed interval improvement and patient agrees to go home today. She will be discharged on Ceftin 7 days and prednisone taper starting 40 mg. Patient finish her course of Zithromax already today last dose. Patient denies any other new symptom Patient states that she has oxygen at home, family preservation caseworker was on the case as well. Patient was cleared for discharge by ID team and pulmonary services. Problems and management plan were discussed with the patient and he verbalized understanding and acceptance Patient was found stable and can be discharged home in guarded prognosis however he needs follow-up as an outpatient. Patient was instructed to follow up with PCP Dr. Marie within one week and patient agrees Patient was made aware about her hilar lymphadenopathy and the need for outpatient follow-up with biomedical engineering supervisor, risks including but not limited to infection and cancer are explained for her and she verbalized understanding and acceptance to follow up with Dr. Denton on 10/28 (agreed with the date and time). Physical exam Gen: patient is a AAOx3, no distress CVS: S1-S2, RRR, no murmur Lungs: B/L CTA, no wheezing Abdomen: soft, no distention, no tenderness, positive bowel sounds Extremity: no leg edema or induration Time spent more than 35 minutes Patient Condition at Discharge: Serious Plan - Discharge Summary Discharge Rx Participant: Yes New Discharge Prescriptions: New cefUROXime axetiL [Ceftin] 500 mg PO BID 7 Days #14 tab predniSONE 10 mg PO DIRECTED #40 tab Ipratropium-Albuterol Nebulize [Duoneb 0.5 mg-3 mg/3 ml Soln] 3 ml INHALATION RT-QID #1 each Continue Simvastatin [Zocor] 40 mg PO HS Potassium Chloride ER [K-Dur 10] 10 meq PO DAILY Metoprolol Tartrate [Lopressor] 25 mg PO BID DULoxetine HCL [Cymbalta] 60 mg PO HS Fluticasone/Umeclidin/Vilanter [Trelegy Ellipta 200-62.5-25] 1 puff INHALATION RT-HS Aspirin EC [Ecotrin Low Dose] 81 mg PO DAILY Omeprazole 20 mg PO BID HYDROcodone/APAP 5-325MG [Chester 5-325] 1 tab PO BID Ergocalciferol [Vitamin D2 (1250 Mcg = 98015 Iu)] 1,250 mcg PO DALE Albuterol Sulfate [Ventolin HFA] 2 puff INHALATION RT-QID PRN #1 each PRN Reason: Shortness Of Breath Discharge Medication List Aspirin EC [Ecotrin Low Dose] 81 mg PO DAILY 10/08/22 [History] DULoxetine HCL [Cymbalta] 60 mg PO HS 10/08/22 [History] Ergocalciferol [Vitamin D2 (1250 Mcg = 40671 Iu)] 1,250 mcg PO DALE 10/08/22 [History] Fluticasone/Umeclidin/Vilanter [Trelegy Ellipta 200-62.5-25] 1 puff INHALATION RT-HS 10/08/22 [History] HYDROcodone/APAP 5-325MG [Chester 5-325] 1 tab PO BID 10/08/22 [History] Metoprolol Tartrate [Lopressor] 25 mg PO BID 10/08/22 [History] Omeprazole 20 mg PO BID 10/08/22 [History] Potassium Chloride ER [K-Dur 10] 10 meq PO DAILY 10/08/22 [History] Simvastatin [Zocor] 40 mg PO HS 10/08/22 [History] Albuterol Sulfate [Ventolin HFA] 2 puff INHALATION RT-QID PRN #1 each 10/14/22 [Rx] Ipratropium-Albuterol Nebulize [Duoneb 0.5 mg-3 mg/3 ml Soln] 3 ml INHALATION RT-QID #1 each 10/14/22 [Rx] cefUROXime axetiL [Ceftin] 500 mg PO BID 7 Days #14 tab 10/14/22 [Rx] predniSONE 10 mg PO DIRECTED #40 tab 10/14/22 [Rx] Follow up Appointment(s)/Referral(s): Radha Beckham MD [STAFF PHYSICIAN] - 10/28/22 8:30 am (you will need more test for your enlarged lung lymph nodes ) Jonathan Flynn,Home Care [NON-STAFF] - As Needed [facility]Equipment [NON-STAFF] - As Needed (nebulizer) Kevin Marie MD [Primary Care Provider] - 1-2 days (Office is closed at time of discharge. Please call for follow-up appointment.) Patient Instructions/Handouts: Pneumonia (DC) Activity/Diet/Wound Care/Special Instructions: Heart healthy diet, low carbohydrate diet 1600 k paul per day activity is restricted till you see your doctor we recommend you follow up with pulmonary clinic as you may benefit from endobronchial ultrasound and transbronchial needle aspirate of the hilar lymph nodes Discharge Disposition: HOME SELF-CARE
== END 2022-10-14 16:02 | disposition home or self-care (01) | DRG 871 ==
LOC: EC 12:03 → 4SSUR 14:42
PROVIDERS: ADMIT Internal Medicine; ATTEND Internal Medicine
DX: A41.89 Other specified sepsis (principal); J15.9 Unspecified bacterial pneumonia; J96.21 Acute and chronic respiratory failure with hypoxia; J44.0 Chronic obstructive pulmonary disease with (acute) lower respiratory infection; E78.5 Hyperlipidemia, unspecified; I10 Essential (primary) hypertension; F32.A Depression, unspecified; K21.9 Gastro-esophageal reflux disease without esophagitis; Z20.822 Contact with and (suspected) exposure to COVID-19; Z79.82 Long term (current) use of aspirin; Z79.899 Other long term (current) drug therapy; Z99.81 Dependence on supplemental oxygen; Z87.891 Personal history of nicotine dependence
CPT/HCPCS: 36415; 71045; 71046; 71275; 80048; 80053; 83605; 83735; 84439; 84443; 84481; 84484; 85025; 85027; 85379; 85610; 85730; 86140; 87040; 87070; 87205; 87449; 87635; 93005; 93306; 94640; 94760; 96361; 96365; 96367; 96375; 99291

== ENCOUNTER → 2023-02-02 | Outpatient (CLI) | payer MEDICARE, OTHER ==
--- NOTE | 2023-02-02 12:22 | CT ---
EXAMINATION TYPE: CT chest w con CT DLP: 303 mGycm, Automated exposure control for dose reduction was used. DATE OF EXAM: 02/02/2023 11:29 AM COMPARISON: Chest radiograph from same day. Multiple CTs of the chest with most recent on . CLINICAL INDICATION:Female, 62 years old with history of R59.0 LOCALIZED ENLARGED LYMPH NODES; PHH, n odule, abn CT TECHNIQUE: Multiple axial images were obtained through the chest. Sagittal and coronal reformats were created for review. Contrast used:100 mL of Isovue 300 with IV Contrast (None if empty) Oral contrast used: (None if empty) FINDINGS: LUNGS/ PLEURA: Moderate centrilobular emphysema changes throughout the lungs. Resolution of prior rig ht lower lobe pneumonia. No focal consolidation,, pneumothorax or pleural effusion. AIRWAY: Patent and unremarkable. HEART: Size within normal limits. MEDIASTINUM: No gross evidence of adenopathy. VASCULATURE: Atherosclerotic calcifications are present throughout the aorta and its branches. MUSCULOSKELETAL: No acute osseous abnormalities, fixation hardware in the lower spine. Vertebroplasty changes present. Hardware appears intact. SOFT TISSUES/LYMPH NODES: Unremarkable. LOWER NECK: No significant findings. UPPER ABDOMEN: The gallbladder surgically absent. IMPRESSION: 1. Resolution of prior right lower lobe pneumonia. No suspicious pulmonary nodules. No evidence for acute process. 2. Moderate emphysema changes throughout the lungs. Follow up recommendations for incidental pulmonary nodules, if there are any, are per [employer] or [employer].
== END | disposition home or self-care (01) ==
LOC: RADCTMAIN 11:01
PROVIDERS: ATTEND Internal Medicine
DX: J43.2 Centrilobular emphysema (principal); R59.0 Localized enlarged lymph nodes
CPT/HCPCS: 71260; Q9967

== ENCOUNTER → 2023-12-26 | Day surgery (SDC) | payer MEDICARE, OTHER ==
[~2023-12-26] MED LIST: LIDOCAINE 1% (10MG/ML) FOR IV START INTRADERMA PRN; LIDOCAINE 2% (PF) 20 MG/ML 5 ML VIAL ONE; ONDANSETRON 4 MG/2 ML VIAL IVP PRN; PROPOFOL 10 MG/ML 20 ML VIAL IV ONE
[2023-12-26 10:30] VITALS: TEMP 97.4
[2023-12-26] MEDS: IV FLUID CONTINUATION 1,000 ML IV ONE (10:38)
[2023-12-26] MEDS: LACTATED RINGERS 1,000 ML IV SCH (10:39)
--- NOTE | 2023-12-26 11:22 | P.PCN ---
Date of Procedure: 12/26/23 Procedure(s) Performed: BRIEF HISTORY: Patient is a 63-year-old, pleasant, white female scheduled for an upper endoscopy as a part evaluation of persistent nausea vomiting for the last 1 year duration.. PROCEDURE PERFORMED: Esophagogastroduodenoscopy with biopsy PREOPERATIVE DIAGNOSIS: Chronic nausea vomiting of 1 year duration. IV sedation per anesthesia. PROCEDURE: After informed consent was obtained, the patient was brought into the endoscopy unit. IV sedation was administered by Anesthesia under continuous monitoring. Initially the Olympus GIF-140 video endoscope was inserted into the mouth. Esophagus intubated without any difficulty. It was gradually advanced into the stomach and duodenum and carefully examined. The bulb and the second part of the duodenum appeared normal. Apices were done from the duodenum to rule out celiac disease. The scope at this time was withdrawn to the stomach, adequately insufflated with air, and upon careful examination, mucosa of the antrum, mild gastritis and biopsies were done from this area. Mucosa body, cardia and the fundus appeared normal. The scope was then withdrawn into the esophagus. The GE junction was located at 39 cm from the incisors. The esophagus appeared normal. There were no erosions or ulcerations seen, biopsies were done from the distal soft and the patient tolerated the procedure well. IMPRESSION: 1. Mild antral gastritis. 2. Small hiatal hernia. RECOMMENDATIONS: The findings of this examination were discussed with the patient as well as her family. She was advised to follow the biopsy results.. Continue with omeprazole 20 mg daily and follow antireflux measures. Follow-up in the office in 2 weeks.
[2023-12-26 12:32] VITALS: BP 119/65; PULSE 72; RESP 16
== END ==
LOC: ORWHC2ENDO 09:36
PROVIDERS: ATTEND Internal Medicine Gastroenterology
DX: K29.50 Unspecified chronic gastritis without bleeding (principal); K44.9 Diaphragmatic hernia without obstruction or gangrene; I10 Essential (primary) hypertension; E78.5 Hyperlipidemia, unspecified; J44.9 Chronic obstructive pulmonary disease, unspecified; F41.9 Anxiety disorder, unspecified; F32.A Depression, unspecified; M54.50 Low back pain, unspecified; G89.29 Other chronic pain; Z79.899 Other long term (current) drug therapy
CPT/HCPCS: 43239; J2704; J2003; 88305

== ENCOUNTER → 2024-09-09 | Outpatient (CLI) | payer OTHER ==
--- NOTE | 2024-09-09 13:58 | MM ---
Reason for Exam: Screening (asymptomatic). Baseline mammogram. Patient History: Menarche at age 18. First Full-Term at age 20. Left ovary removed at age 39. Hysterectomy at age 39. Postmenopausal. Risk Values: Brenna 5 year model risk: 1.0%. NCI Lifetime model risk: 4.4%. Prior Study Comparison: Patient's first Mammogram. Tissue Density: The breasts are heterogeneously dense, which may obscure small masses. Findings: Analyzed By CAD. Right breast: Focal asymmetries right upper outer quadrant . Left breast: There is no suspicious group of microcalcifications or new suspicious mass. Overall Assessment: Incomplete: need additional imaging evaluation, BI-RAD 0 Management: Diagnostic Mammogram of the right breast. Spot compression imaging of the right breast upper outer quadrant recommended with 3-D. [facility] will attempt to contact patient to return for supplemental views and ultrasound if indicated. Patient should continue monthly self-breast exams. A clinical breast exam by your physician is recommended on an annual basis. This exam should not preclude additional follow-up of suspicious palpable abnormalities. Note on Brenna scores and lifetime risk: 1. A Brenna score greater than 3% is considered moderate risk. If this is the case, consider specialist referral to assess eligibility for a risk reducing agent. 2. If overall lifetime risk for the development of breast cancer is 20% or higher, the patient may qualify for future screening with alternating mammogram and breast MRI. [facility], , 09/09/2024 1:54 PM. Electronically signed and approved by: Jose Maria Oglesby DO
--- NOTE | 2024-09-09 21:10 | BD ---
EXAMINATION TYPE: Axial Bone Density DATE OF EXAM: 09/09/2024 CLINICAL HISTORY: 64 years old Female. ICD-10 CODE: [id number] DISORDER OF BONE , Additional History: Height: 60.5 Weight: 169 FRAX RISK QUESTIONS: Family History (Parent hip fracture): no History of Fracture in Adulthood: yes Secondary Osteoporosis: yes 3. Menopause before 45: yes Rheumatoid Arthritis: yes RISK FACTORS HISTORY OF: Hip Fracture (Right): yes When: 2020 Spine Fracture: yes When: 2020 Surgery to Spine/Hip(right): yes When: 2020 with hardware MEDICATIONS: Thyroid Medications: no Osteoporosis Medications: no EXAM MEASUREMENTS: Bone mineral densitometry was performed using the [employer]. Bone mineral density about the L hip (g/cm2): 0.701 T Score values are as follows: -----L Neck: -2.7 -----L Total: -2.4 Z Score values are as follows: -----L Neck: -1.6 -----L Total: -1.6 Bone mineral density baseline Bone mineral density about the L Wrist (g/cm2): 0.447 T Score values are as follows: -----Dist. R+U: -3.5 -----Prox. R+U: -2.9 -----Radius total: -3.8 Z Score values are as follows: -----Dist. R+U: -2.3 -----Prox. R+U: -1.7 -----Radius total: -2.6 Bone mineral density baseline FRAX%s: The graph provided illustrates a 21.5% chance for a major osteoporotic fx and a 5.0% chance f or the hips probability for fx in 10 years time. IMPRESSION: Osteoporosis (T Score less than -2.5). There is increased fracture risk and therapy is usually indicated based on age. Re-Screen 1-2 years. NOTE: T-SCORE=SD OF THE YOUNG ADULT MEAN. [facility], , 09/09/2024 9:07 PM
== END | disposition home or self-care (01) ==
LOC: RADBDWWP 11:13
PROVIDERS: ATTEND Family Medicine
DX: Z12.31 Encounter for screening mammogram for malignant neoplasm of breast (principal); M89.8X0 Other specified disorders of bone, multiple sites; R92.333 Mammographic heterogeneous density, bilateral breasts; Z78.0 Asymptomatic menopausal state; M81.0 Age-related osteoporosis without current pathological fracture
CPT/HCPCS: 77063; 77067; 77080

== ENCOUNTER → 2024-09-09 | Outpatient (CLI) | payer MEDICARE ==
--- NOTE | 2024-09-13 00:59 | CTL ---
EXAMINATION TYPE: CT Low Dose Lung DATE OF EXAM: 09/09/2024 11:00 AM COMPARISON: 02/02/2023 SCREENING VISIT: Subsequent CT DIAGNOSTIC QUALITY: Satisfactory CLINICAL INDICATION: Female, 64 years old with history of Z12.2 LUNG CA SCR Z87.891 NICOTINE DEPENDEN CE, , Lung cancer screening, History of tobacco use. TECHNIQUE: Low dose computed tomography scan was performed through the chest at 1 mm thick sections a nd reconstructed images in the coronal plane at 1 mm thick sections. Contrast used: mL of , (none if empty) Oral contrast used: (none if empty) CT DLP: 74.6 mGycm, Automated exposure control for dose reduction was used. CT CTDI: mGy, Automated exposure control for dose reduction was used. FINDINGS: LUNG NODULES: Present, detailed below: 1. There is an irregular density measuring 1.8 cm in the posterior lateral right mid to lower lung fi eld. Series 4 image 181. Additional workup neoplasm is recommended. Finding is new from comparison. LUNGS: COPD: Severity: Severe Fibrosis: Severity: None Lymph nodes: None Other findings: None RIGHT PLEURAL SPACE: Effusion: None Calcification: None Thickening: None Pneumothorax: None LEFT PLEURAL SPACE: Effusion: None Calcification: None Thickening: None Pneumothorax: None HEART: Other: Ascending thoracic aorta at the level the main pulmonary artery measures 3.1 cm. The main pul monary artery at the bifurcation measures 2.8 cm. Heart Size: Normal Coronary calcification: Mild coronary artery calcifications present. Pericardial effusion: None OTHER FINDINGS: Upper abdomen: Normal Bony thorax: Normal Supraclavicular region: Normal IMPRESSION: 1. No suspicious findings posterior lateral right mid to lower lung field, an interval finding. FOLLOW UP CT CHEST RECOMMENDATION: PET/CT CT LUNG RAD: Lung-Rad 4B Suspicious [facility], , 09/13/2024 12:56 AM
== END | disposition home or self-care (01) ==
LOC: RADCTMAIN 10:31
PROVIDERS: ATTEND Internal Medicine
DX: Z12.2 Encounter for screening for malignant neoplasm of respiratory organs (principal); Z87.891 Personal history of nicotine dependence
CPT/HCPCS: 71271

== ENCOUNTER → 2024-09-12 | Outpatient (CLI) | payer MEDICARE ==
--- NOTE | 2024-09-12 15:22 | MM ---
Reason for Exam: Additional evaluation requested from abnormal screening. Last screening mammogram was performed less than 1 month ago. Patient History: Menarche at age 18. First Full-Term at age 20. Left ovary removed at age 39. Hysterectomy at age 39. Postmenopausal. Risk Values: Brenna 5 year model risk: 1.0%. NCI Lifetime model risk: 4.4%. Prior Study Comparison: 09/09/2024 Bilateral MG 3D screening mammo w/cad, [facility]. Tissue Density: Right: There are scattered areas of fibroglandular density. Findings: Analyzed By CAD. Patient right lateral breast cc view middle depth. Asymmetry compresses out on spot compression imaging. No suspicious masses, calcifications or distortions. Overall Assessment: Benign, BI-RAD 2 Management: Screening Mammogram of both breasts in 1 year. Results were given to the patient verbally at the time of exam. Patient should continue monthly self-breast exams. A clinical breast exam by your physician is recommended on an annual basis. This exam should not preclude additional follow-up of suspicious palpable abnormalities. Note on Brenna scores and lifetime risk: 1. A Brenna score greater than 3% is considered moderate risk. If this is the case, consider specialist referral to assess eligibility for a risk reducing agent. 2. If overall lifetime risk for the development of breast cancer is 20% or higher, the patient may qualify for future screening with alternating mammogram and breast MRI. [facility], , 09/12/2024 3:19 PM. Electronically signed and approved by: Jose Maria Oglesby DO
== END | disposition home or self-care (01) ==
LOC: RADMAMWWP 14:51
PROVIDERS: ATTEND Family Medicine
DX: R92.8 Other abnormal and inconclusive findings on diagnostic imaging of breast (principal); R92.331 Mammographic heterogeneous density, right breast; Z78.0 Asymptomatic menopausal state
CPT/HCPCS: 77061; 77065